=== PATIENT | female | born 1930 | race Caucasian/White ===

== ENCOUNTER 2018-11-18 17:30 | Inpatient (IN) | payer MEDICARE, BC ==
[2018-11-18] MEDS ORDERED: Lactated Ringers 1,000 ML IV SCH (18:00)
[2018-11-18] MEDS ORDERED: cefTRIAXone 1 GM Vial IV SCH (18:00)
--- NOTE | 2018-11-18 18:03 | EDM.PDOC ---
<OfficerReyes - Last Filed: 11/18/18 18:03> ED HPI GENERAL MEDICAL PROBLEM - General Chief Complaint: Genitourinary Problem Stated Complaint: ILLNESS Time Seen by Provider: 11/18/18 17:48 Source of Information: Reports: Patient, Family, RN Notes Reviewed History Limitations: Reports: No Limitations - History of Present Illness INITIAL COMMENTS - FREE TEXT/NARRATIVE: 88-year-old female presents to emergency department today via EMS services for new onset confusion and weakness, she states she was seen in the clinic about a week ago for a cough that she's had now for 2 weeks evaluation at that time included rapid strep screen and rapid influenza screen both were negative. She has not done any treatment. She states over the last couple days she's developed some urinary frequency and dysuria as well as a fever - Related Data Allergies Allergy/AdvReac Type Severity Reaction Status Date / Time adhesive tape Allergy Blisters Verified 11/18/18 17:44 diphenhydramine HCl Allergy Blisters Verified 11/18/18 17:44 [From Benadryl] ibuprofen [From Motrin] Allergy Cannot Verified 11/18/18 17:44 Remember latex Allergy Blisters Verified 11/18/18 17:44 Home Meds: Home Meds Acetaminophen [Tylenol Extra Strength] 1,000 mg PO Q6HR 07/15/15 [History] HCTZ/Triamterene [Maxzide 25-37.5 MG] 0.5 tab PO DAILY 07/15/15 [History] Lisinopril 1 tab PO BID 08/27/15 [History] Cyanocobalamin (Vitamin B-12) [Vitamin B-12] 1,000 mcg PO DAILY 11/18/18 [ History] Past Medical History HEENT History: Reports: Impaired Vision, Other (See Below) Other HEENT History: Past hx of bloody nose. 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 Psychiatric History: Reports: Anxiety Oncologic (Cancer) History: Reports: Other (See Below) Other Oncologic History: melanoma - Infectious Disease History Infectious Disease History: Reports: Chicken Pox, Measles, Mumps, Shingles - Past Surgical History HEENT Surgical History: Reports: Cataract Surgery GI Surgical History: Reports: Cholecystectomy, Colonoscopy Female Surgical History: Reports: Section Dermatological Surgical History: Reports: Skin Biopsy, Skin Graft Social & Family History - Tobacco Use Smoking Status *Q: Never Smoker - Caffeine Use Caffeine Use: Reports: Coffee, Tea - Recreational Drug Use Recreational Drug Use: No ED ROS GENERAL - Review of Systems Review Of Systems: See Below Constitutional: Reports: Fever, Chills, Weakness HEENT: Reports: No Symptoms Respiratory: Reports: Shortness of Breath, Cough, Sputum. Denies: Wheezing Cardiovascular: Reports: Dyspnea on Exertion GI/Abdominal: Reports: No Symptoms : Reports: Dysuria, Frequency (Discharge) Musculoskeletal: Reports: No Symptoms Skin: Reports: No Symptoms Neurological: Reports: No Symptoms ED EXAM, SEPSIS - Physical Exam Exam: See Below Text/Narrative:: General: Elderly female not in any distress orientated 2, alert HEENT: head is atraumatic normocephalic, eyes pupils equal round reactive to light, sclera clear no conjunctivitis appreciated. Ears tympanic membranes clear and liang landmarks and light reflex are present bilaterally canals are clear. Nose no septal deviation, nares are clear, no blood present. Mouth mucosa is moist and pink no erythema or exudate noted in soft palate, tongue is midline uvula is midline, dentition is intact. Neck: Supple no thyromegaly no tracheal deviation. Nodes: Cervical nodes subclavicular nodes nontender no palpable lymphadenopathy noted. Lungs: clear to auscultation bilaterally with symmetrical respirations, no adventitious noise appreciated. CV: Regular rate and rhythm S1 and S2 appreciated no murmurs rubs or gallops noted. Abdomen: Soft, nontender, no palpable masses or organomegaly appreciated, no distention no guarding bowel sounds are present, . Neuro: Cranial nerves II through XII intact Skin: Warm and dry, intact Extremities: No lower extremity edema appreciated, pedal pulse is +2. Course - Vital Signs Last Recorded V/S: Last Vital Signs Temp 98.9 F 11/18/18 20: Pulse 85 11/18/18 20:21 Resp 16 11/18/18 20:21 BP 101/54 L 11/18/18 20:21 Pulse Ox 96 11/18/18 20:21 - Orders/Labs/Meds Orders: Active Orders 24 hr Category Date Time Status Vital Signs [RC] Q1H Care 11/18/18 17:56 Active Chest 1V Frontal [CR] Urgent Exams 11/18/18 18:21 Taken CULTURE BLOOD [BC] Urgent Lab 11/18/18 18:05 Received CULTURE BLOOD [BC] Urgent Lab 11/18/18 18:16 Received Lactated Ringers [Ringers, Lactated] 1,000 ml Med 11/18/18 18:00 Active IV ASDIRECTED Blood Culture x2 Reflex Set [OM.PC] Urgent Oth 11/18/18 17:56 Ordered Medication Orders Lactated Ringer's (Ringers, Lactated) 1,000 mls @ 500 mls/hr IV ASDIRECTED IRENE Last Admin: 11/18/18 18:16 Dose: 500 mls/hr Labs: Laboratory Tests 11/18/18 11/18/18 11/18/18 Range/Units 18:06 18:16 18:16 WBC 3.8 L (4.5-11.0) K/uL RBC 3.67 (3.30-5.50) M/uL Hgb 11.2 L (12.0-15.0) g/dL Hct 35.2 L (36.0-48.0) % MCV 96 (80-98) fL MCH 31 (27-31) pg MCHC 32 (32-36) % Plt Count 186 (150-400) K/uL Neut % (Auto) 81 H (36-66) % Lymph % (Auto) 9 L (24-44) % Garza % (Auto) 10 H (2-6) % Eos % (Auto) 0 L (2-4) % Baso % (Auto) 0 (0-1) % Sodium 137 L (140-148) mmol/L Potassium 3.6 (3.6-5.2) mmol/L Chloride 98 L (100-108) mmol/L Carbon Dioxide 29 (21-32) mmol/L Anion Gap 13.6 (5.0-14.0) mmol/L BUN 21 H (7-18) mg/dL Creatinine 1.1 H (0.6-1.0) mg/dL Est Cr Clr Drug Dosing 27.96 mL/min Estimated GFR (MDRD) 47 L (>60) Glucose 116 H (74-106) mg/dL Lactic Acid (0.4-2.0) mmol/L Calcium 9.5 (8.5-10.1) mg/dL Total Bilirubin 0.3 (0.2-1.0) mg/dL AST 21 (15-37) U/L ALT 20 (12-78) U/L Alkaline Phosphatase 76 (46-116) U/L C-Reactive Protein 4.77 H (0.0-0.3) mg/dL Total Protein 7.3 (6.4-8.2) g/dL Albumin 3.6 (3.4-5.0) g/dL Globulin 3.7 H (2.3-3.5) g/dL Albumin/Globulin Ratio 1.0 L (1.2-2.2) Urine Color Yellow Urine Appearance Cloudy Urine pH 5.0 (4.5-8.0) Ur Specific [place] 1.015 (1.008-1.030) Urine Protein Trace (NEGATIVE) mg/dL Urine Glucose (UA) Normal (NEGATIVE) mg/dL Urine Ketones 50 H (NEGATIVE) mg/dL Urine Occult Blood Moderate (NEGATIVE) Urine Nitrite Negative (NEGATIVE) Urine Bilirubin Moderate (NEGATIVE) Urine Urobilinogen 4 (NORMAL) mg/dL Ur Leukocyte Esterase Negative (NEGATIVE) Urine RBC 0-5 (0-5) Urine WBC 0-5 (0-5) Ur Epithelial Cells Moderate Amorphous Sediment Few Urine Bacteria Few Urine Mucus Few 11/18/18 Range/Units 18:16 WBC (4.5-11.0) K/uL RBC (3.30-5.50) M/uL Hgb (12.0-15.0) g/dL Hct (36.0-48.0) % MCV (80-98) fL MCH (27-31) pg MCHC (32-36) % Plt Count (150-400) K/uL Neut % (Auto) (36-66) % Lymph % (Auto) (24-44) % Garza % (Auto) (2-6) % Eos % (Auto) (2-4) % Baso % (Auto) (0-1) % Sodium (140-148) mmol/L Potassium (3.6-5.2) mmol/L Chloride (100-108) mmol/L Carbon Dioxide (21-32) mmol/L Anion Gap (5.0-14.0) mmol/L BUN (7-18) mg/dL Creatinine (0.6-1.0) mg/dL Est Cr Clr Drug Dosing mL/min Estimated GFR (MDRD) (>60) Glucose (74-106) mg/dL Lactic Acid 1.2 (0.4-2.0) mmol/L Calcium (8.5-10.1) mg/dL Total Bilirubin (0.2-1.0) mg/dL AST (15-37) U/L ALT (12-78) U/L Alkaline Phosphatase (46-116) U/L C-Reactive Protein (0.0-0.3) mg/dL Total Protein (6.4-8.2) g/dL Albumin (3.4-5.0) g/dL Globulin (2.3-3.5) g/dL Albumin/Globulin Ratio (1.2-2.2) Urine Color Urine Appearance Urine pH (4.5-8.0) Ur Specific [place] (1.008-1.030) Urine Protein (NEGATIVE) mg/dL Urine Glucose (UA) (NEGATIVE) mg/dL Urine Ketones (NEGATIVE) mg/dL Urine Occult Blood (NEGATIVE) Urine Nitrite (NEGATIVE) Urine Bilirubin (NEGATIVE) Urine Urobilinogen (NORMAL) mg/dL Ur Leukocyte Esterase (NEGATIVE) Urine RBC (0-5) Urine WBC (0-5) Ur Epithelial Cells Amorphous Sediment Urine Bacteria Urine Mucus Meds: Medications Generic Name Dose Route Start Last Admin Trade Name Freq PRN Reason Stop Dose Admin Lactated Ringer's 1,000 mls @ 500 mls/hr 11/18/18 18:00 11/18/18 18:16 Ringers, Lactated IV 500 mls/hr ASDIRECTED IRENE Administration Discontinued Medications Generic Name Dose Route Start Last Admin Trade Name Freq PRN Reason Stop Dose Admin Azithromycin 500 mg 11/18/18 18:50 11/18/18 18:56 Zithromax PO 11/18/18 18:51 500 mg ONETIME ONE Administration Ceftriaxone Sodium 1 gm/ 50 mls @ 100 mls/hr 11/18/18 18:11 11/18/18 18:16 Sodium Chloride IV 11/18/18 18:40 100 mls/hr ONETIME ONE Administration Oseltamivir Phosphate 75 mg 11/18/18 19:05 11/18/18 19:32 Tamiflu PO 11/18/18 19:06 75 mg ONETIME ONE Administration Departure - Departure Disposition: Home, Self-Care 01 Clinical Impression: Influenza A, Bronchitis - Discharge Information <Martinez Bell - Last Filed: 11/18/18 21:56> Course - Re-Assessments/Exams Free Text/Narrative Re-Assessment/Exam: 11/18/18 18:55 Patient care turned over from Officer pending lab and x-ray. White count was 3800, UA was negative for infection and chest x-ray showed no significant infiltrate. Her influenza A is now positive, it was negative in the clinic last week. She is not hypoxic and is otherwise stable. She does not want hospitalization. She'll be discharged on a 5 day course of Tamiflu and Zithromax to cover atypicals, she has an appointment with her primary provider tomorrow. If she worsens, especially difficulty breathing she should return to the emergency room. 11/18/18 21:55 Patient attempted to leave but she is really too weak to even stand. The family was very concerned about her ability to care for herself. Patient was willing to be admitted, Dr. Cruz was contacted for admission. Departure - Departure Time of Disposition: 20:13 Condition: Fair
[2018-11-18] MEDS ORDERED: cefTRIAXone 1 GM in Sodium Chloride 0.9% 50 ML IV ONE (18:11)
[2018-11-18] MEDS ORDERED: Azithromycin 250 MG Tab PO ONE (18:50)
[2018-11-18] MEDS ORDERED: Oseltamivir 75 MG Cap PO ONE (19:05)
[2018-11-18] MEDS ORDERED: Ondansetron 4 MG Tab.DIS PO PRN (21:51)
[2018-11-18] MEDS ORDERED: Acetaminophen 325 MG Tab PO PRN (21:51)
[2018-11-18] MEDS ORDERED: guaiFENesin/Dextromethorphan 100-10 MG/5 ML Soln 10 ML Cup PO PRN (21:55)
--- NOTE | 2018-11-18 23:34 | HP ---
IDENTIFYING DATA: Brandy Ca is an 88-year-old female from [facility]. CHIEF COMPLAINT: "I feel weak." HISTORY OF PRESENT ILLNESS: An elderly female has an approximately a week long history of an acute respiratory infection, initially thought to represent a simple viral syndrome. She was seen in the clinic and found to have negative influenza testing and was instructed to treat symptomatically. Over the last 48 hours, she has had increasing weakness, questionable fever, malaise, and periods of confusion. She returned to the emergency room this evening with general lethargy and inability to care for self and was found to have positive influenza A nasal smear. She has had fevers and chills as well as a mildly pleuritic cough with yellow-green sputum production. Appetite is diminished. No abdominal pain, nausea, or emesis. No nasal congestion, sore throat, or headaches. Mild chronic arthralgias are reported by patient. She has not received an annual influenza vaccine. PAST MEDICAL HISTORY: Previous surgeries include cholecystectomy and screening colonoscopy as well as delivery in the remote past. She has had bilateral cataract extractions. Chronic health problems include only essential hypertension with pharmacologic therapy and degenerative arthritis of the left hip requiring ambulation with use of a walker. She is not currently driving. Family checks near daily on her status, do provide assistance with transportation, appointments, and grocery shopping. ALLERGIES: REPORTED TO ADHESIVE TAPE, DIPHENHYDRAMINE, IBUPROFEN, AND LASIX. CURRENT MEDICATIONS: Acetaminophen 1000 mg q.a.m. and q.6 hours p.r.n., hydrochlorothiazide with triamterene 25/37.5 mg 1/2 tablet daily, lisinopril 1 tablet b.i.d. dose unknown, and vitamin B12 1000 mcg p.o. daily. HABITS: Nonsmoker. No alcohol use. Caffeine intake of 3-4 cups of coffee daily. 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 Family checks on her frequently. A mobile homes repairer checks daily and provides assistance with housekeeping as needed. FAMILY HISTORY: A great granddaughter has recent upper respiratory infection. No other familial history is of current illnesses. REVIEW OF SYSTEMS: NEUROLOGIC: History of macular degeneration and cataract disease with visual impairment. No longer able to read without use of magnification. She does not drive. No history of stroke, seizures, dementia, or focal weakness. CARDIAC: Hypertension. No history of diabetes, ischemic heart disease, VA, chest pain, palpitations, syncope, or unusual shortness of breath. No dependent edema or peripheral vascular disease. RESPIRATORY: Denies asthma, emphysema, tuberculosis, chronic cough or sputum production. GI: No history of chronic dyspepsia, hepatitis, jaundice, melena or hematochezia. : No chronic renal disease. Mild urinary urgency noted today. With her general weakness and inability to ambulate independently, she was incontinent today. MUSCULOSKELETAL: Chronic left hip arthritic pain. Some stiffness at the knees reported by patient. She does have a history of falls and has medical alert bracelet worn routinely. PHYSICAL EXAMINATION: GENERAL: Appearance is that of a weak and elderly female with a harsh mildly rhonchorous cough. VITAL SIGNS: Initial vitals; temperature 98.9 degrees Fahrenheit, pulse rate 85, respiratory rate 16 with O2 sats of 96% on room air, blood pressure 101/54. HEENT: Status post cataract extraction. Sclerae anicteric. No facial asymmetry. Speech is clear. Hearing slightly diminished. Oral mucosa is moist. NECK: Brisk carotid pulses. No stridor or adenopathy. LUNGS: Resonant, nontachypneic, symmetrical aeration. Mild coarse expiratory rhonchi. No rales or wheezes heard. HEART: Regular without murmurs or gallops. ABDOMEN: Soft, nontender, and nondistended. No organomegaly. Active sounds. Good femoral pulses. No abdominal bruits or CVA pain. AND RECTAL: Omitted. EXTREMITIES: No pitting edema. SKIN: Warm and pink, intact. Good distal arterial pulses. Brisk capillary refill. LABORATORY DATA: On admission, WBC 3.8 with 81% segs, 9% lymphocytes, 10% monos, hemoglobin 11.2, hematocrit 35.2, platelet count 186,000. Sodium 137, potassium 3.6, BUN 21, creatinine 1.1, GFR 47, glucose 116. Alkaline phosphatase 76 with AST of 21. C-reactive protein moderately elevated at 4.77. Urinalysis; specific gravity 1.015, positive ketonuria, moderate occult blood and bilirubin, negative leukocyte esterase, 0-5 wbc's, few bacteria. Lactic acid within normal range at 1.2. Chest x-ray; no acute areas of consolidation or infiltrates to suggest acute bacterial pulmonary sepsis. Influenza nasal smear is positive for influenza A. IMPRESSIONS: 1. General weakness, fever, and lethargy secondary to influenza A. 2. History of hypertension. 3. Degenerative arthritis of left hip with moderate mobility limitations. 4. Currently at an acute vulnerable status with her infectious illness and inability to care for self. PLAN: The patient will be admitted to observation bed. We will provide antipyretics, antivirals in the form of scheduled Tamiflu, Tylenol for fever and discomfort as well as ongoing use of antihypertensives. Allow ambulation with assistance as tolerated and a regular diet. If general weakness does not allow for return to her private residence within 24 to 48 hours, we will need to consider transition to retirement for ongoing supportive care. Family is in agreement. Paul Cruz MD /[id number]
--- NOTE | 2018-11-19 05:26 | PN ---
DATE OF SERVICE: 11/19/2018 SUBJECTIVE: An 88-year-old female was admitted yesterday evening with generalized weakness, fever, congestion, cough, and positive influenza A studies. Through the night, she has rested intermittently. She has an occasional harsh mildly productive cough. Denies pain. No nausea or emesis. She is taking small amounts of liquid. Denies shortness of breath. OBJECTIVE: VITAL SIGNS: Temperature this morning 38.1 degrees centigrade, pulse rate 74, blood pressure 89/44, respiratory rate 19 with O2 saturations 94% on room air. HEENT: Throat is moist and pink. NECK: Brisk carotid pulses. No stridor or adenopathy. LUNGS: Occasional mild rhonchorous cough, non-tachypneic. No wheezes or rales heard. HEART: Regular without murmurs or gallops. EXTREMITIES: Warm and pink with good turgor. IMPRESSION AND PLAN: Influenza A with accompanying weakness on presentation. Has not yet ambulated out of bed. We will encourage movement about the room with supervision of nursing staff today. Provide dietary intake as tolerated. Encouraged increased fluid intake and maintain on antiviral therapies with Tamiflu. If she shows sufficient improvement, to allow for performance of ADLs in a reliable manner without weakness or confusion. We will consider discharge to home today. Family and caregivers do check daily on her status and likely will be able to be discharged to home without additional home care services. We will follow up at midday to review her current functional status. Paul Cruz MD /[id number]
[2018-11-19] MEDS ORDERED: Oseltamivir 30 MG Cap PO SCH (09:00)
[2018-11-19] MEDS ORDERED: Oseltamivir 75 MG Cap PO SCH ×2 (09:00)
[2018-11-19 14:24] VITALS: BP 107/54
[2018-11-19] MEDS ORDERED: cefTRIAXone 1 GM, Lidocaine 1% 2.1 ML IM SCH ×2 (18:00)
[2018-11-19] MEDS ORDERED: cefTRIAXone 1 GM Vial IM SCH (18:00)
--- NOTE | 2018-11-20 04:47 | DISCH ---
REASON FOR ADMISSION: An 88-year-old female who lived alone, was admitted with complaints of fever, general weakness, and reported confusion identified by family. She had a 2-day history of acute respiratory symptoms with congestion and cough. Family reports an approximate week long history of lesser congestion and cough with earlier influenza studies obtained at the clinic noted to be normal or negative. She has noted history of essential hypertension. Additionally, she has degenerative arthritis of the left hip. She uses a walker as an ambulatory aid. Family and acquaintances check routinely. She is provided transportation by family. She no longer drives. PHYSICAL EXAMINATION ON ADMISSION: VITAL SIGNS: Temperature 98.9 degrees, pulse rate 85, respiratory rate 16 with O2 sats 96% on room air, blood pressure 101/54. HEENT: Status post cataract extraction. No facial asymmetry. Speech is clear. Oral mucosa was moist. NECK: Brisk carotid pulses. No stridor or adenopathy. LUNGS: Symmetrical aeration. Non-tachypneic. Mild coarse expiratory rhonchi. No wheezes or rales heard. HEART: Regular without murmurs. ABDOMEN: Benign. EXTREMITIES: No pitting edema. SKIN: Warm, pink, and intact with brisk arterial pulses. LABORATORY DATA: On admission: WBC 3.8 with 81% segs, 9% lymphocytes, 10 monos; hemoglobin 11.2; platelet count 186,000. Sodium 137, potassium 3.6, BUN 21, creatinine 1.1, GFR 47, glucose 116, alkaline phosphatase 76, AST 21. CRP mildly elevated at 4.77. Urinalysis: Specific gravity of 1.015, positive ketonuria, moderate occult blood and bilirubin, negative leukocyte esterase, 0 to 5 wbc's, few bacteria. Lactic acid 1.2. Chest x-ray: No acute consolidation or infiltrates. Influenza nasal smear was positive for influenza A. HOSPITAL COURSE: The patient was admitted to observation status with noted generalized weakness and reported confusion of 1 to 2 days duration. She had congestion, cough, and scant sputum production. She rested comfortably through the night and had no acute respiratory distress. O2 sats were maintained within normal range on room air. The following morning cough was showing interval improvement with antiviral therapy. Appetite was improved. She was ambulated with standby assistance of staff. She was able to rise from toilet and bed unassisted, ambulate short distances limited primarily by left hip pain of recognized chronic arthritis as well as accompanying generalized weakness. Physical therapy services were obtained. She was found to be able to reliably perform ambulatory activities with reasonable symmetrical strength. Plans for discharge to home were made. CONDITION: Improved. DISCHARGE INSTRUCTIONS: 1. Home with family on 11/19/2018. 2. Diet: As tolerated. 3. No driving. May be up with use of walker as tolerated. 4. We will hold antihypertensive therapies. Continue with antiviral therapies in the form of Tamiflu at 35 mg p.o. daily x3 days to complete a 5-day course of therapy. 5. May resume p.r.n. use of Tylenol for arthritic hip. ADMITTING DIAGNOSES: 1. Influenza A with fever, weakness, and lethargy. 2. History of hypertension. 3. Degenerative arthritis of left hip. DISCHARGE DIAGNOSES: 1. Influenza A, weakness, fever, lethargy, and transient confusion, now showing interval improvement. 2. Hypertension. 3. Degenerative arthritis of left hip with moderate mobility limitations, requiring use of walker.
--- NOTE | 2018-11-20 07:28 | CRLCR ---
Final Report: INDICATION: cough, fever TECHNIQUE: Chest 1 view. COMPARISON: None. FINDINGS: Cardiovascular and mediastinum: Heart size and vasculature are normal in caliber and appearance. Mediastinum is within normal limits. Lungs and pleural space: Lungs are clear. No sign of infiltrate or mass. No sign of pleural effusion. No pneumothorax. Bones and soft tissues: No significant findings. IMPRESSION: Unremarkable chest. Dictated by: Kain Cyr MD @ 11/18/2018 18:46:48 Signed by: Kain Cyr MD @11/18/2018 6:46:48 PM (Electronic Signature) MTDD
== END 2018-11-19 16:00 | disposition home or self-care (01) | DRG 195 ==
LOC: JP.ED 17:30 → JP.MS 19:37
PROVIDERS: ADMIT Family Medicine; ATTEND Family Medicine
DX: J10.1 Influenza due to other identified influenza virus with other respiratory manifestations (principal); J40 Bronchitis, not specified as acute or chronic; R53.1 Weakness; I10 Essential (primary) hypertension; M16.12 Unilateral primary osteoarthritis, left hip; R41.0 Disorientation, unspecified; R53.83 Other fatigue; Z85.820 Personal history of malignant melanoma of skin; H54.7 Unspecified visual loss; Z90.49 Acquired absence of other specified parts of digestive tract; Z91.040 Latex allergy status; Z88.8 Allergy status to other drugs, medicaments and biological substances; Z91.048 Other nonmedicinal substance allergy status
CPT/HCPCS: 36415; 71045; 80053; 81001; 83605; 85025; 86140; 87040 ×2; 87804 ×2; 96365; 99285; A9270 ×2; J0696; J7050; J7120; 97110-GP; 97162-GP; 97530-GP; 97535-GP

== ENCOUNTER 2019-03-11 21:06 | Inpatient (IN) | payer MEDICARE, BC ==
--- NOTE | 2019-03-11 22:01 | EDM.PDOC ---
ED HPI GENERAL MEDICAL PROBLEM - General Chief Complaint: Fever Stated Complaint: FEVER,WEAKNESS Time Seen by Provider: 03/11/19 21:40 Source of Information: Reports: Patient History Limitations: Reports: No Limitations - History of Present Illness INITIAL COMMENTS - FREE TEXT/NARRATIVE: 80-year-old female who still lives independently has been feeling weak and ill for the past couple of days, has developed some lower abdominal pain and intermittent fever. Tonight her family went to evaluate her and she was too weak to walk, she had a temperature of "102.8" and they felt she wasn't eating. Other than some vague left lower quadrant abdominal pain, she has no specific complaints such as cold symptoms, cough, shortness of breath, headache, joint pains or rigors. She denies any urinary symptoms. No diarrhea. Onset: Gradual Duration: Day(s): (3 days) Location: Reports: Abdomen (Left lower quadrant) Associated Symptoms: Reports: Fever/Chills, Malaise, Weakness. Denies: Cough, Nausea/Vomiting, Shortness of Breath Hip Pain Score (Numeric/FACES): 3 - Related Data Allergies Allergy/AdvReac Type Severity Reaction Status Date / Time adhesive tape Allergy Blisters Verified 03/11/19 21:21 diphenhydramine HCl Allergy Blisters Verified 03/11/19 21:21 [From Benadryl] ibuprofen [From Motrin] Allergy Cannot Verified 03/11/19 21:21 Remember latex Allergy Blisters Verified 03/11/19 21:21 Home Meds: Home Meds Acetaminophen [Tylenol] 650 mg PO Q4H PRN tablet 11/19/18 [Rx] Fluorouracil 1 applic TOP ASDIRECTED 03/11/19 [History] Triamterene/Hydrochlorothiazid [Triamterene-HCTZ 37.5-25 MG] 0.5 each PO DAILY 03/11/19 [History] Past Medical History HEENT History: Reports: Impaired Vision, Other (See Below) Other HEENT History: Past hx of bloody nose. 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 Psychiatric History: Reports: Anxiety Oncologic (Cancer) History: Reports: Other (See Below) Other Oncologic History: melanoma - Infectious Disease History Infectious Disease History: Reports: Chicken Pox - Past Surgical History HEENT Surgical History: Reports: Cataract Surgery GI Surgical History: Reports: Cholecystectomy, Colonoscopy Female Surgical History: Reports: Section Dermatological Surgical History: Reports: Skin Biopsy, Skin Graft Social & Family History - Family History Family Medical History: Unobtainable - Tobacco Use Smoking Status *Q: Never Smoker Second Hand Smoke Exposure: No - Caffeine Use Caffeine Use: Reports: Coffee - Recreational Drug Use Recreational Drug Use: No ED ROS GENERAL - Review of Systems Review Of Systems: See Below Constitutional: Reports: Fever, Chills, Malaise, Weakness, Decreased Appetite HEENT: Reports: No Symptoms Respiratory: Denies: Shortness of Breath, Cough Cardiovascular: Denies: Chest Pain GI/Abdominal: Reports: Abdominal Pain, Nausea (When eating). Denies: Constipation, Diarrhea, Vomiting : Reports: No Symptoms Skin: Reports: Other (Significant systemic rash that she is applying any anti- neoplastic cream) Neurological: Reports: Weakness. Denies: Confusion, Dizziness, Headache ED EXAM, SEPSIS - Physical Exam Exam: See Below Exam Limited By: No Limitations General Appearance: Alert, No Apparent Distress, Other (Appears weak but not in distress) Eye Exam: Bilateral Eye: EOMI (No jaundice, good hydration) Head: Atraumatic Respiratory/Chest: No Respiratory Distress, Lungs Clear Cardiovascular: Regular Rate, Rhythm. No: Tachycardia GI/Abdominal Exam: Soft, Tender (Reacts with tenderness with slight guarding in the left lower quadrant, no significant rebound tenderness) Extremities: Normal Inspection. No: Pedal Edema Neurological: Alert, Oriented Psychiatric: Depressed Mood, Flat Affect Skin: Warm, Dry, Other (Diffuse erythematous macular rash) Course - Vital Signs Last Recorded V/S: Last Vital Signs Temp 98.8 F 03/14/19 04:00 Pulse 109 H 03/14/19 16:00 Resp 20 03/14/19 16:00 BP 99/59 L 03/14/19 16:00 Pulse Ox 96 03/14/19 16:00 - Orders/Labs/Meds Orders: Medication Orders Acetaminophen (Tylenol) 650 mg PO Q4H PRN PRN Reason: Pain Last Admin: 03/13/19 09:37 Dose: 650 mg Admin: 03/12/19 17:04 Dose: 650 mg Admin: 03/12/19 09:01 Dose: 325 mg Admin: 03/12/19 08:48 Dose: 325 mg Albuterol (Proventil Neb Soln) 2.5 mg NEB Q4H PRN PRN Reason: Shortness Of Breath/wheezing Amiodarone HCl (Cordarone) 200 mg PO BID IRENE Bisacodyl (Dulcolax) 5 mg PO DAILY PRN PRN Reason: Constipation Cefdinir (Omnicef) 300 mg PO BID IRENE Docusate Sodium (Colace) 100 mg PO BID PRN PRN Reason: Constipation Ondansetron HCl (Zofran Odt) 4 mg PO Q6H PRN PRN Reason: Nausea able to take PO Ondansetron HCl (Zofran) 4 mg IV Q4H PRN PRN Reason: Nausea/Vomiting Pantoprazole Sodium (Protonix) 40 mg PO ACBREAKFAST IRENE Last Admin: 03/14/19 07:44 Dose: 40 mg Admin: 03/13/19 08:03 Dose: 40 mg Admin: 03/12/19 08:49 Dose: 40 mg Labs: Laboratory Tests 03/11/19 03/11/19 03/11/19 Range/Units 21:44 21:56 21:56 WBC 3.2 L (4.5-11.0) K/uL RBC 3.34 (3.30-5.50) M/uL Hgb 10.4 L (12.0-15.0) g/dL Hct 31.2 L (36.0-48.0) % MCV 93 (80-98) fL MCH 31 (27-31) pg MCHC 33 (32-36) % Plt Count 79 L (150-400) K/uL Neut % (Auto) 39 (36-66) % Lymph % (Auto) 44 (24-44) % [place] % (Auto) 13 H (2-6) % Eos % (Auto) 0 L (2-4) % Baso % (Auto) 4 H (0-1) % Sodium 134 L (140-148) mmol/L Potassium 3.7 (3.6-5.2) mmol/L Chloride 101 (100-108) mmol/L Carbon Dioxide 27 (21-32) mmol/L Anion Gap 9.7 (5.0-14.0) mmol/L BUN 21 H (7-18) mg/dL Creatinine 0.9 (0.6-1.0) mg/dL Est Cr Clr Drug Dosing 37.31 mL/min Estimated GFR (MDRD) 59 L (>60) Glucose 113 H (74-106) mg/dL Lactic Acid (0.4-2.0) mmol/L Calcium 8.9 (8.5-10.1) mg/dL Total Bilirubin 0.6 D (0.2-1.0) mg/dL AST 53 H D (15-37) U/L ALT 44 D (12-78) U/L Alkaline Phosphatase 71 (46-116) U/L Total Protein 5.9 L (6.4-8.2) g/dL Albumin 3.1 L (3.4-5.0) g/dL Globulin 2.8 (2.3-3.5) g/dL Albumin/Globulin Ratio 1.1 L (1.2-2.2) Procalcitonin 0.92 ng/mL Urine Color [place] Urine Appearance Clear Urine pH 6.0 (4.5-8.0) Ur Specific [place] 1.015 (1.008-1.030) Urine Protein 30 H (NEGATIVE) mg/dL Urine Glucose (UA) Normal (NEGATIVE) mg/dL Urine Ketones Negative (NEGATIVE) mg/dL Urine Occult Blood Moderate (NEGATIVE) Urine Nitrite Negative (NEGATIVE) Urine Bilirubin Small (NEGATIVE) Urine Urobilinogen 8 (NORMAL) mg/dL Ur Leukocyte Esterase Small (NEGATIVE) Urine RBC 5-10 H (0-5) Urine WBC 5-10 H (0-5) Ur Epithelial Cells Moderate Amorphous Sediment Few Urine Bacteria Few Urine Mucus Moderate Urine Other See note 03/11/19 Range/Units 21:56 WBC (4.5-11.0) K/uL RBC (3.30-5.50) M/uL Hgb (12.0-15.0) g/dL Hct (36.0-48.0) % MCV (80-98) fL MCH (27-31) pg MCHC (32-36) % Plt Count (150-400) K/uL Neut % (Auto) (36-66) % Lymph % (Auto) (24-44) % [place] % (Auto) (2-6) % Eos % (Auto) (2-4) % Baso % (Auto) (0-1) % Sodium (140-148) mmol/L Potassium (3.6-5.2) mmol/L Chloride (100-108) mmol/L Carbon Dioxide (21-32) mmol/L Anion Gap (5.0-14.0) mmol/L BUN (7-18) mg/dL Creatinine (0.6-1.0) mg/dL Est Cr Clr Drug Dosing mL/min Estimated GFR (MDRD) (>60) Glucose (74-106) mg/dL Lactic Acid 1.0 (0.4-2.0) mmol/L Calcium (8.5-10.1) mg/dL Total Bilirubin (0.2-1.0) mg/dL AST (15-37) U/L ALT (12-78) U/L Alkaline Phosphatase (46-116) U/L Total Protein (6.4-8.2) g/dL Albumin (3.4-5.0) g/dL Globulin (2.3-3.5) g/dL Albumin/Globulin Ratio (1.2-2.2) Procalcitonin ng/mL Urine Color Urine Appearance Urine pH (4.5-8.0) Ur Specific [place] (1.008-1.030) Urine Protein (NEGATIVE) mg/dL Urine Glucose (UA) (NEGATIVE) mg/dL Urine Ketones (NEGATIVE) mg/dL Urine Occult Blood (NEGATIVE) Urine Nitrite (NEGATIVE) Urine Bilirubin (NEGATIVE) Urine Urobilinogen (NORMAL) mg/dL Ur Leukocyte Esterase (NEGATIVE) Urine RBC (0-5) Urine WBC (0-5) Ur Epithelial Cells Amorphous Sediment Urine Bacteria Urine Mucus Urine Other Meds: Medications Generic Name Dose Route Start Last Admin [facility] Reason Stop Dose Admin Acetaminophen 650 mg 03/12/19 02:16 03/13/19 09:37 Tylenol PO 650 mg Q4H PRN Administration Pain Albuterol 2.5 mg 03/12/19 02:16 Proventil Neb Soln NEB Q4H PRN Shortness Of Breath/wheezing Amiodarone HCl 200 mg 03/14/19 21:00 Cordarone PO BID IRENE Bisacodyl 5 mg 03/12/19 02:16 Dulcolax PO DAILY PRN Constipation Cefdinir 300 mg 03/14/19 21:00 Omnicef PO BID IRENE Docusate Sodium 100 mg 03/12/19 02:16 Colace PO BID PRN Constipation Ondansetron HCl 4 mg 03/12/19 02:16 Zofran Odt PO Q6H PRN Nausea able to take PO Ondansetron HCl 4 mg 03/12/19 02:16 Zofran IV Q4H PRN Nausea/Vomiting Pantoprazole Sodium 40 mg 03/12/19 07:30 03/14/19 07:44 Protonix PO 40 mg ACBREAKFAST IRENE Administration Discontinued Medications Generic Name Dose Route Start Last Admin Trade Name Freq PRN Reason Stop Dose Admin Amiodarone HCl 200 mg 03/13/19 10:45 03/14/19 08:20 Cordarone PO 200 mg DAILY IRENE Administration Sodium Chloride 1,000 mls @ 500 mls/hr 03/11/19 22:15 03/11/19 22:28 Normal Saline IV 500 mls/hr ASDIRECTED IRENE Administration Sodium Chloride 70 mls @ 3 mls/sec 03/11/19 23:19 03/11/19 23:37 Normal Saline IV 03/11/19 23:20 3 mls/sec ASDIRECTED STA Administration Ceftriaxone Sodium 1 gm/ 50 mls @ 100 mls/hr 03/12/19 02:00 03/14/19 02:43 Sodium Chloride IV 100 mls/hr Q24H IRENE Administration Sodium Chloride 1,000 mls @ 100 mls/hr 03/12/19 02:16 03/12/19 10:20 Normal Saline IV 100 mls/hr ASDIRECTED IRENE Administration Amiodarone HCl 450 mg/ 250 mls @ 33.33 mls/hr 03/12/19 11:00 03/12/19 11:25 Dextrose/Water IV 1 mg/min ASDIRECTED IRENE 33.33 mls/hr Administration Protocol 1 MG/MIN Amiodarone HCl/Dextrose 150 mg 100 mls @ 400 mls/hr 03/12/19 11:00 03/12/19 11:07 / Premix IV 03/12/19 11:14 400 mls/hr ONETIME ONE Administration Sodium Chloride 1,000 mls @ 25 mls/hr 03/12/19 12:45 Normal Saline IV ASDIRECTED IRENE Magnesium Sulfate 2 gm/ Premix 50 mls @ 12.5 mls/hr 03/12/19 13:00 03/12/19 12:59 IV 03/12/19 16:59 12.5 mls/hr ONETIME ONE Administration Amiodarone HCl/Dextrose 150 mg 100 mls @ 400 mls/hr 03/14/19 10:15 03/14/19 10:10 / Premix IV 03/14/19 10:29 400 mls/hr NOW ONE Administration Iopamidol 100 ml 03/11/19 23:19 03/11/19 23:37 Isovue-300 (61%) IV 03/11/19 23:20 100 ml . DIRECTED STA Administration Metoprolol Tartrate 25 mg 03/12/19 01:40 03/12/19 02:43 Lopressor PO 03/12/19 01:41 25 mg ONETIME ONE Administration Triamterene/HCTZ 0.5 each 03/12/19 09:00 03/12/19 08:49 Maxzide 25-37.5 Mg PO 0.5 each DAILY IRENE Administration - Re-Assessments/Exams Free Text/Narrative Re-Assessment/Exam: 03/11/19 22:01 A quick catheter in and out UA was obtained along with a CBC, CMP, blood cultures and pro-calcitonin. 03/12/19 00:23 UA did not show any significant inflammatory findings. White count was 3200 but she has chronic low white cell levels. CMP revealed mild dehydration, pro- calcitonin and lactic acid were both negative and she did not reestablish a fever while in the emergency room. She did not however regain her strength and was still barely unable to bear weight so we'll need to be admitted for the next day or 2 for hydration and strengthening. Departure - Departure Time of Disposition: 02:14 Disposition: Admitted As Inpatient 66 Clinical Impression: Weakness, Dehydration - Discharge Information
[2019-03-11] MEDS ORDERED: Sodium Chloride 0.9% 1,000 ML IV SCH (22:15)
[2019-03-11] MEDS ORDERED: Iopamidol 612 MG/ML 100 ML Bottle IV STA (23:19)
--- NOTE | 2019-03-12 00:15 | CRLCT ---
INDICATION: Lower abdominal pain. CT ABDOMEN AND PELVIS WITH CONTRAST TECHNIQUE: Multidetector CT imaging was performed through the abdomen and pelvis following intravenous contrast administration using 100 mL Isovue 300. Coronal and sagittal reconstructions were generated. COMPARISON: None. FINDINGS: Lower chest: Mild bibasilar lung atelectasis or scarring. Liver: No focal liver lesion identified. Gallbladder and bile ducts: Status post cholecystectomy. Moderate intrahepatic and extrahepatic biliary dilation; this may merely reflect post cholecystectomy reservoir effect but correlation with LFTs is suggested to exclude biliary obstruction. Pancreas: Unremarkable. Spleen: Normal. Adrenals: No nodules or masses. Kidneys, ureters, and urinary bladder: 2 centimeter cyst at the lower pole of the left kidney. Moderate distention of the urinary bladder and mild dilation of the ureters and intrarenal collecting systems bilaterally. Gastrointestinal tract: Nonspecific mild increase in small bowel gas and fluid, most likely representing mild ileus. No definite bowel obstruction or wall thickening. Appendix not identified. No findings suggestive of appendicitis in the right lower quadrant. Multiple sigmoid colon diverticula, without evidence of diverticulitis. Vascular structures: Normal caliber abdominal aorta with mild aortoiliac atherosclerotic calcifications. Peritoneum: Mild free fluid identified in the lower right pelvis. No loculated collection suggestive of abscess. No free air is seen. Lymph nodes: No pathologically enlarged nodes identified. Reproductive organs: No pelvic masses. Bones: Moderate multilevel spondylosis. 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 IMPRESSION: 1. Nonspecific probable mild ileus and small amount of free pelvic fluid, etiology unclear. 2. Status post cholecystectomy. Moderate dilation of the biliary tree is noted and may reflect post cholecystectomy reservoir effect, but correlation with LFTs is suggested to exclude biliary obstruction. 3. Moderate distention of the urinary bladder and mild bilateral hydroureteronephrosis. 4. Nonacute additional findings as detailed above. LAURA FORBES MD [facility] Dictated by Finesse Forbes MD @ 03/12/2019 12:14:06 AM Dictated by: Finesse Forbes MD @ 03/12/2019 00:14:17 (Electronically Signed)
--- NOTE | 2019-03-12 01:21 | PCM.HP ---
H&P History of Present Illness - General Date of Service: 03/11/19 Admit Problem/Dx: Admission Diagnosis/Problem Admission Diagnosis/Problem Weakness Source of Information: Patient, Family (Son and [id number]) History Limitations: Reports: No Limitations - History of Present Illness Initial Comments - Free Text/Narative: 80-year-old female who still lives independently has been feeling weak and ill for the past couple of days, has developed some lower abdominal pain and intermittent fever. Tonight her family went to evaluate her and she was too weak to walk, she had a temperature of "102.8" and they felt she wasn't eating. Other than some vague left lower quadrant abdominal pain, she has no specific complaints such as cold symptoms, cough, shortness of breath, headache, joint pains or rigors. She denies any urinary symptoms. No diarrhea. Onset: Gradual Duration: Day(s): (3 days) Location: Reports: Abdomen (Left lower quadrant) Associated Symptoms: Reports: Fever/Chills, Malaise, Weakness. Denies: Cough, Nausea/Vomiting, Shortness of Breath Onset of Symptoms: Reports: Sudden, Gradual (3 to 4 days of gradual illness.) Location: Reports: Generalized Improves with: Reports: None Worsens with: Reports: None Associated Symptoms: Reports: Nausea/Vomiting (nausea without vomiting) - Related Data Allergies/Adverse Reactions: Allergies Allergy/AdvReac Type Severity Reaction Status Date / Time adhesive tape Allergy Blisters Verified 03/11/19 21:21 diphenhydramine HCl Allergy Blisters Verified 03/11/19 21:21 [From Benadryl] ibuprofen [From Motrin] Allergy Cannot Verified 03/11/19 21:21 Remember latex Allergy Blisters Verified 03/11/19 21:21 Home Medications: Home Meds Acetaminophen [Tylenol] 650 mg PO Q4H PRN tablet 11/19/18 [Rx] Fluorouracil 1 applic TOP ASDIRECTED 03/11/19 [History] Triamterene/Hydrochlorothiazid [Triamterene-HCTZ 37.5-25 MG] 0.5 each PO DAILY 03/11/19 [History] Past Medical History HEENT History: Reports: Impaired Vision, Other (See Below) Other HEENT History: Past hx of bloody nose. Cardiovascular History: Reports: Hypertension [employer] History: Reports: Other OB/BYN History: Dermoid Psychiatric History: Reports: Anxiety Oncologic (Cancer) History: Reports: Other (See Below) Other Oncologic History: melanoma - Infectious Disease History Infectious Disease History: Reports: Chicken Pox - Past Surgical History HEENT Surgical History: Reports: Cataract Surgery GI Surgical History: Reports: Cholecystectomy, Colonoscopy Female Surgical History: Reports: Section Dermatological Surgical History: Reports: Skin Biopsy, Skin Graft Social & Family History - Family History Family Medical History: Unobtainable - Tobacco Use Smoking Status *Q: Never Smoker Second Hand Smoke Exposure: No - Caffeine Use Caffeine Use: Reports: Coffee - Recreational Drug Use Recreational Drug Use: No - Living Situation & Occupation Living situation: Reports: ( 22 years ago, lives alone in [place]. worked until age 85 years, when told she couldn't drive anymore. She reports she is the last one alive of her 10 brothers and sister. She had 2 Sons, one of cancer, one Grandson . Lives alone in her own home.) H&P Review of Systems - Review of Systems: Review Of Systems: See Below General: Reports: Fever (102.8 at home) HEENT: Reports: Glasses, Other (natural teeth) Pulmonary: Reports: No Symptoms Cardiovascular: Reports: No Symptoms Gastrointestinal: Reports: No Symptoms Genitourinary: Reports: No Symptoms Musculoskeletal: Reports: Joint Pain (chronic left hip pain from arthritis) Skin: Reports: Other (history of skin cancer to face and left side of jaw and ear, left shoulder. currently being treated by Dermatology.) Psychiatric: Reports: No Symptoms Neurological: Reports: No Symptoms Hematologic/Lymphatic: Reports: No Symptoms Immunologic: Reports: No Symptoms Exam - Exam Exam: See Below - Vital Signs Vital Signs: Last Vital Signs Temp 37.1 C 03/11/19 22:45 Pulse 102 H 03/11/19 22:45 Resp 12 03/11/19 21:25 BP 107/58 L 03/11/19 22:45 Pulse Ox 96 03/11/19 22:45 Weight: 67.585 kg - Exam Quality Assessment: DVT Prophylaxis General: Alert, Oriented, Cooperative HEENT: PERRLA, Conjunctiva Clear, EACs Clear, EOMI, Hearing Intact, Mucosa Moist & [place], Nares Patent, Normal Nasal Septum, Posterior Pharynx Clear, Pupils Equal, Pupils Reactive, TMs Clear, Other (natural teeth noted. ) Neck: Supple, Trachea Midline Lungs: Clear to Auscultation, Normal Respiratory Effort Cardiovascular: Regular Rate, Normal S1, Normal S2, Irregular Rhythm GI/Abdominal Exam: Normal Bowel Sounds, Soft, Non-Tender, No Distention, No Abnormal Bruit, No Mass, Pelvis Stable (Female) Exam: Deferred Rectal (Female) Exam: Deferred Back Exam: Normal Inspection Extremities: Normal Inspection, Normal Range of Motion, Pedal Edema (bilateral.) Skin: Warm, Dry, Intact, Rash (yeast rash noted to left abdominal groin fold) Neurological: Reflexes Equal Bilateral, Strength Equal Bilateral Neuro Extensive - Mental Status: Alert, Oriented x3, Normal Mood/Affect, Normal Cognition, Memory Intact Neuro Extensive - Motor, Sensory, Reflexes: Other (weakness) Psychiatric: Alert, Normal Affect, Normal Mood - Patient Data Lab Results Last 24 hrs: Laboratory Results - last 24 hr 03/11/19 03/11/19 03/11/19 Range/Units 21:44 21:56 21:56 WBC 3.2 L (4.5-11.0) K/uL RBC 3.34 (3.30-5.50) M/uL Hgb 10.4 L (12.0-15.0) g/dL Hct 31.2 L (36.0-48.0) % MCV 93 (80-98) fL MCH 31 (27-31) pg MCHC 33 (32-36) % Plt Count 79 L (150-400) K/uL Neut % (Auto) 39 (36-66) % Lymph % (Auto) 44 (24-44) % [place] % (Auto) 13 H (2-6) % Eos % (Auto) 0 L (2-4) % Baso % (Auto) 4 H (0-1) % Sodium 134 L (140-148) mmol/L Potassium 3.7 (3.6-5.2) mmol/L Chloride 101 (100-108) mmol/L Carbon Dioxide 27 (21-32) mmol/L Anion Gap 9.7 (5.0-14.0) mmol/L BUN 21 H (7-18) mg/dL Creatinine 0.9 (0.6-1.0) mg/dL Est Cr Clr Drug Dosing 37.31 mL/min Estimated GFR (MDRD) 59 L (>60) Glucose 113 H (74-106) mg/dL Lactic Acid (0.4-2.0) mmol/L Calcium 8.9 (8.5-10.1) mg/dL Total Bilirubin 0.6 D (0.2-1.0) mg/dL AST 53 H D (15-37) U/L ALT 44 D (12-78) U/L Alkaline Phosphatase 71 (46-116) U/L Total Protein 5.9 L (6.4-8.2) g/dL Albumin 3.1 L (3.4-5.0) g/dL Globulin 2.8 (2.3-3.5) g/dL Albumin/Globulin Ratio 1.1 L (1.2-2.2) Procalcitonin 0.92 ng/mL Urine Color [place] Urine Appearance Clear Urine pH 6.0 (4.5-8.0) Ur Specific [place] 1.015 (1.008-1.030) Urine Protein 30 H (NEGATIVE) mg/dL Urine Glucose (UA) Normal (NEGATIVE) mg/dL Urine Ketones Negative (NEGATIVE) mg/dL Urine Occult Blood Moderate (NEGATIVE) Urine Nitrite Negative (NEGATIVE) Urine Bilirubin Small (NEGATIVE) Urine Urobilinogen 8 (NORMAL) mg/dL Ur Leukocyte Esterase Small (NEGATIVE) Urine RBC 5-10 H (0-5) Urine WBC 5-10 H (0-5) Ur Epithelial Cells Moderate Amorphous Sediment Few Urine Bacteria Few Urine Mucus Moderate Urine Other See note 03/11/19 Range/Units 21:56 WBC (4.5-11.0) K/uL RBC (3.30-5.50) M/uL Hgb (12.0-15.0) g/dL Hct (36.0-48.0) % MCV (80-98) fL MCH (27-31) pg MCHC (32-36) % Plt Count (150-400) K/uL Neut % (Auto) (36-66) % Lymph % (Auto) (24-44) % [place] % (Auto) (2-6) % Eos % (Auto) (2-4) % Baso % (Auto) (0-1) % Sodium (140-148) mmol/L Potassium (3.6-5.2) mmol/L Chloride (100-108) mmol/L Carbon Dioxide (21-32) mmol/L Anion Gap (5.0-14.0) mmol/L BUN (7-18) mg/dL Creatinine (0.6-1.0) mg/dL Est Cr Clr Drug Dosing mL/min Estimated GFR (MDRD) (>60) Glucose (74-106) mg/dL Lactic Acid 1.0 (0.4-2.0) mmol/L Calcium (8.5-10.1) mg/dL Total Bilirubin (0.2-1.0) mg/dL AST (15-37) U/L ALT (12-78) U/L Alkaline Phosphatase (46-116) U/L Total Protein (6.4-8.2) g/dL Albumin (3.4-5.0) g/dL Globulin (2.3-3.5) g/dL Albumin/Globulin Ratio (1.2-2.2) Procalcitonin ng/mL Urine Color Urine Appearance Urine pH (4.5-8.0) Ur Specific [place] (1.008-1.030) Urine Protein (NEGATIVE) mg/dL Urine Glucose (UA) (NEGATIVE) mg/dL Urine Ketones (NEGATIVE) mg/dL Urine Occult Blood (NEGATIVE) Urine Nitrite (NEGATIVE) Urine Bilirubin (NEGATIVE) Urine Urobilinogen (NORMAL) mg/dL Ur Leukocyte Esterase (NEGATIVE) Urine RBC (0-5) Urine WBC (0-5) Ur Epithelial Cells Amorphous Sediment Urine Bacteria Urine Mucus Urine Other Result Diagrams: 03/11/19 21:56 03/11/19 21:56 - Problem List (1) Dehydration SNOMED Code(s): 79968360 ICD Code: E86.0 - DEHYDRATION Status: Acute Priority: High Current Visit: Yes (2) Weakness SNOMED Code(s): 49793220 ICD Code: R53.1 - WEAKNESS Status: Acute Priority: High Current Visit: Yes (3) Atrial fibrillation SNOMED Code(s): 78785370 ICD Code: I48.91 - UNSPECIFIED ATRIAL FIBRILLATION Status: Acute Priority : High Current Visit: Yes Qualifiers: Atrial fibrillation type: unspecified Qualified Code(s): I48.91 - Unspecified atrial fibrillation Problem List Initiated/Reviewed/Updated: Yes Orders Last 24hrs: Active Orders 24 hr Category Date Time Status Patient Status Manage Transfer [TRANSFER] Routine ADT 03/12/19 01:03 Ordered CULTURE BLOOD [BC] Urgent Lab 03/11/19 22:00 Received CULTURE BLOOD [BC] Urgent Lab 03/11/19 22:10 Received Sodium Chloride 0.9% [Normal Saline] 1,000 ml Med 03/11/19 22:15 Active IV ASDIRECTED Blood Culture x2 Reflex Set [OM.PC] Urgent Oth 03/11/19 21:56 Ordered Resuscitation Status Routine Resus Stat 03/12/19 01:06 Ordered Medication Orders Sodium Chloride (Normal Saline) 1,000 mls @ 500 mls/hr IV ASDIRECTED IRENE Last Admin: 03/11/19 22:28 Dose: 500 mls/hr Assessment/Plan Comment:: ASSESSMENT / PLAN This is a 88 year old female presents to ER via POV with concerns of sudden onset of weakness with mild nausea. She was unable to get up from chair, was trying to use the TV remote to call her family. Prior to today's event Mrs. Ca has been able to ambulate and did not have any impairment prior to today. Family reports fever of 102.8 at home. reports not feeling well for 3 to 4 days. labs done is ER , CBC; wbc 3.2, hgb 10.4, hct 31.2, plt 79 BMP Na+134, K+3.7, cl 101, anion gap 9.7, bun 21, cr 0.9, glucose 59., Urine with micro + small leukocyts, WBC 5-10, RBC 5-10, blood cultures x 2 pending Imaging; CT abdomen-pelvis with contrast : non specific probable mild ileus and small amount of free pelvic fluid, etiology unclear. moderate distention of the urinary bladder and mild bilateral hydroureteronephrosis. non acute additional findings. Prior to transfer to [address] [place] [address], Mrs. Ca was noted to have heart rate 130, telemetry and EKG shows Atrial Fib. She denies any chest pain, shortness of breath or any symptoms. Blood pressure 115/67. unknown length of time in A.Fib , will treat with Metoprolol 25 mg po once , if does not responds will consider Digoxin [address] Tse. Will plan to admit OBS to treat symptoms and reassess in am. Weakness -IV Rocephin 1 gram, for early bladder infection. -IV hydration with NS at 100ml/hr -referral to OT and PT for discharge planning -blood cultures x 2 pending -reassess in am Atrial Fibrillation -give Metoprolol 25 mg po now -if heart rate does not respond to Metoprolol may consider Digoxin 125mcg po once -telemetry -vital sign every 4 hours. Maintenance issues -Orders home meds: has one Tylenol, vitamin, HTN medication -Nutrition: Regular diet -Nagy catheter not indicated at this time -DVT:SCD -GI Prophalaxis; Protonix 40mg daily CODE STATUS: Full Admission status: Admit to Observation -I expect this patient to stay less than 24 hours, not to exceed 96 hours for evaluation and management of this problem. Disposition: home with family Primary care provider:RAY Hilton Hospitalist: Dr. Tse
[2019-03-12] MEDS ORDERED: Ondansetron 4 MG/2 ML SDV IV PRN (02:16)
[2019-03-12] MEDS ORDERED: Bisacodyl 5 MG Tab PO PRN (02:16)
[2019-03-12] MEDS ORDERED: Albuterol 0.083% 2.5 MG/3 ML Neb Soln NEB PRN (02:16)
[2019-03-12] MEDS ORDERED: Ondansetron 4 MG Tab.DIS PO PRN (02:16)
[2019-03-12] MEDS ORDERED: Docusate Sodium 100 MG Cap PO PRN (02:16)
[2019-03-12] MEDS: Metoprolol Tartrate 25 MG Tab PO ONE ×2 (02:21→02:43)
[2019-03-12] MEDS: cefTRIAXone 1 GM in Sodium Chloride 0.9% 50 ML IV SCH (02:42)
[2019-03-12] MEDS: Sodium Chloride 0.9% 1,000 ML IV SCH ×2 (05:57→10:20)
[2019-03-12] MEDS: Acetaminophen 325 MG Tab PO PRN ×3 (08:48→17:04)
[2019-03-12] MEDS: Pantoprazole 40 MG Tab.CR PO SCH (08:49)
[2019-03-12] MEDS ORDERED: Hydrochlorothiazide/Triamterene 25-37.5 Tab PO SCH (09:00)
--- NOTE | 2019-03-12 10:42 | PCM.PN ---
- General Info Date of Service: 03/12/19 Subjective Update: Brandy was admitted last night for management of generalized weakness and presumed urinary tract infection. Shortly after admission she went into atrial fibrillation with a rapid ventricular response. She is asymptomatic with the rhythm but has fairly impressive tachycardia when she is up and moving around with rates up to 150. At rest the rate is 110-120. No fevers since admission. Urine culture was set up this morning. In general the patient says she feels fairly well and had a good breakfast. Blood pressure is on the low side of normal. She complains of left hip pain but has no other pain concerns. She did have a large incontinent mixture of stool and urine. Functional Status: Reports: Pain Controlled, Tolerating Diet - Review of Systems General: Reports: Weakness Pulmonary: Denies: Shortness of Breath - Patient Data Vitals - Most Recent: Last Vital Signs Temp 36.6 C 03/12/19 07:23 Pulse 84 03/12/19 07:23 Resp 16 03/12/19 07:23 BP 88/48 L 03/12/19 07:23 Pulse Ox 97 03/12/19 07:23 Weight - Most Recent: 69.309 kg I&O - Last 24 Hours: Intake & Output 03/11/19 03/12/19 03/12/19 22:59 06:59 14:59 Output Total 1350 Balance -1350 Lab Results Last 24 Hours: Laboratory Results - last 24 hr 03/11/19 03/11/19 03/11/19 Range/Units 21:44 21:56 21:56 WBC 3.2 L (4.5-11.0) K/uL RBC 3.34 (3.30-5.50) M/uL Hgb 10.4 L (12.0-15.0) g/dL Hct 31.2 L (36.0-48.0) % MCV 93 (80-98) fL MCH 31 (27-31) pg MCHC 33 (32-36) % Plt Count 79 L (150-400) K/uL Neut % (Auto) 39 (36-66) % Lymph % (Auto) 44 (24-44) % [place] % (Auto) 13 H (2-6) % Eos % (Auto) 0 L (2-4) % Baso % (Auto) 4 H (0-1) % Sodium 134 L (140-148) mmol/L Potassium 3.7 (3.6-5.2) mmol/L Chloride 101 (100-108) mmol/L Carbon Dioxide 27 (21-32) mmol/L Anion Gap 9.7 (5.0-14.0) mmol/L BUN 21 H (7-18) mg/dL Creatinine 0.9 (0.6-1.0) mg/dL Est Cr Clr Drug Dosing 37.31 mL/min Estimated GFR (MDRD) 59 L (>60) Glucose 113 H (74-106) mg/dL Lactic Acid (0.4-2.0) mmol/L Calcium 8.9 (8.5-10.1) mg/dL Total Bilirubin 0.6 D (0.2-1.0) mg/dL AST 53 H D (15-37) U/L ALT 44 D (12-78) U/L Alkaline Phosphatase 71 (46-116) U/L Total Protein 5.9 L (6.4-8.2) g/dL Albumin 3.1 L (3.4-5.0) g/dL Globulin 2.8 (2.3-3.5) g/dL Albumin/Globulin Ratio 1.1 L (1.2-2.2) Procalcitonin 0.92 ng/mL Urine Color [place] Urine Appearance Clear Urine pH 6.0 (4.5-8.0) Ur Specific [place] 1.015 (1.008-1.030) Urine Protein 30 H (NEGATIVE) mg/dL Urine Glucose (UA) Normal (NEGATIVE) mg/dL Urine Ketones Negative (NEGATIVE) mg/dL Urine Occult Blood Moderate (NEGATIVE) Urine Nitrite Negative (NEGATIVE) Urine Bilirubin Small (NEGATIVE) Urine Urobilinogen 8 (NORMAL) mg/dL Ur Leukocyte Esterase Small (NEGATIVE) Urine RBC 5-10 H (0-5) Urine WBC 5-10 H (0-5) Ur Epithelial Cells Moderate Amorphous Sediment Few Urine Bacteria Few Urine Mucus Moderate Urine Other See note 03/11/19 Range/Units 21:56 WBC (4.5-11.0) K/uL RBC (3.30-5.50) M/uL Hgb (12.0-15.0) g/dL Hct (36.0-48.0) % MCV (80-98) fL MCH (27-31) pg MCHC (32-36) % Plt Count (150-400) K/uL Neut % (Auto) (36-66) % Lymph % (Auto) (24-44) % [place] % (Auto) (2-6) % Eos % (Auto) (2-4) % Baso % (Auto) (0-1) % Sodium (140-148) mmol/L Potassium (3.6-5.2) mmol/L Chloride (100-108) mmol/L Carbon Dioxide (21-32) mmol/L Anion Gap (5.0-14.0) mmol/L BUN (7-18) mg/dL Creatinine (0.6-1.0) mg/dL Est Cr Clr Drug Dosing mL/min Estimated GFR (MDRD) (>60) Glucose (74-106) mg/dL Lactic Acid 1.0 (0.4-2.0) mmol/L Calcium (8.5-10.1) mg/dL Total Bilirubin (0.2-1.0) mg/dL AST (15-37) U/L ALT (12-78) U/L Alkaline Phosphatase (46-116) U/L Total Protein (6.4-8.2) g/dL Albumin (3.4-5.0) g/dL Globulin (2.3-3.5) g/dL Albumin/Globulin Ratio (1.2-2.2) Procalcitonin ng/mL Urine Color Urine Appearance Urine pH (4.5-8.0) Ur Specific [place] (1.008-1.030) Urine Protein (NEGATIVE) mg/dL Urine Glucose (UA) (NEGATIVE) mg/dL Urine Ketones (NEGATIVE) mg/dL Urine Occult Blood (NEGATIVE) Urine Nitrite (NEGATIVE) Urine Bilirubin (NEGATIVE) Urine Urobilinogen (NORMAL) mg/dL Ur Leukocyte Esterase (NEGATIVE) Urine RBC (0-5) Urine WBC (0-5) Ur Epithelial Cells Amorphous Sediment Urine Bacteria Urine Mucus Urine Other Med Orders - Current: Current Medications Acetaminophen (Tylenol) 650 mg PO Q4H PRN PRN Reason: Pain Last Admin: 03/12/19 09:01 Dose: 325 mg Albuterol (Proventil Neb Soln) 2.5 mg NEB Q4H PRN PRN Reason: Shortness Of Breath/wheezing Bisacodyl (Dulcolax) 5 mg PO DAILY PRN PRN Reason: Constipation Docusate Sodium (Colace) 100 mg PO BID PRN PRN Reason: Constipation Ceftriaxone Sodium 1 gm/ (Sodium Chloride) 50 mls @ 100 mls/hr IV Q24H [facility] Last Admin: 03/12/19 02:42 Dose: 100 mls/hr Sodium Chloride (Normal Saline) 1,000 mls @ 100 mls/hr IV ASDIRECTED [facility] Last Admin: 03/12/19 10:20 Dose: 100 mls/hr Amiodarone HCl 450 mg/ (Dextrose/Water) 250 mls @ 33.33 mls/hr IV ASDIRECTED [facility]; Protocol Amiodarone HCl/Dextrose 150 mg (/ Premix) 100 mls @ 400 mls/hr IV ONETIME ONE Stop: 03/12/19 11:14 Ondansetron HCl (Zofran Odt) 4 mg PO Q6H PRN PRN Reason: Nausea able to take PO Ondansetron HCl (Zofran) 4 mg IV Q4H PRN PRN Reason: Nausea/Vomiting Pantoprazole Sodium (Protonix) 40 mg PO ACBREAKFAST [facility] Last Admin: 03/12/19 08:49 Dose: 40 mg Discontinued Medications Sodium Chloride (Normal Saline) 1,000 mls @ 500 mls/hr IV ASDIRECTED [facility] Last Admin: 03/11/19 22:28 Dose: 500 mls/hr Sodium Chloride (Normal Saline) 70 mls @ 3 mls/sec IV ASDIRECTED STA Stop: 03/11/19 23:20 Last Admin: 03/11/19 23:37 Dose: 3 mls/sec Iopamidol (Isovue-300 (61%)) 100 ml IV . DIRECTED STA Stop: 03/11/19 23:20 Last Admin: 03/11/19 23:37 Dose: 100 ml Metoprolol Tartrate (Lopressor) 25 mg PO ONETIME ONE Stop: 03/12/19 01:41 Last Admin: 03/12/19 02:43 Dose: 25 mg Triamterene/HCTZ (Maxzide 25-37.5 Mg) 0.5 each PO DAILY [facility] Last Admin: 03/12/19 08:49 Dose: 0.5 each - Exam Quality Assessment: No: Supplemental Oxygen General: Alert, Oriented, Cooperative, No Acute Distress Lungs: Clear to Auscultation, Normal Respiratory Effort Cardiovascular: No Murmurs, Irregular Rhythm, Tachycardia GI/Abdominal Exam: Soft, No Distention Extremities: No Pedal Edema. No: Increased Warmth Skin: Warm, Dry Psy/Mental Status: Alert, Normal Affect - Problem List & Annotations (1) Acute cystitis without hematuria SNOMED Code(s): 02620093 Code(s): N30.00 - ACUTE CYSTITIS WITHOUT HEMATURIA Status: Acute Current Visit: Yes (2) Paroxysmal atrial fibrillation with rapid ventricular response SNOMED Code(s): 511063907, [id number] Code(s): I48.0 - PAROXYSMAL ATRIAL FIBRILLATION Status: Acute Current Visit: Yes (3) Essential hypertension SNOMED Code(s): 48379847 Code(s): I10 - ESSENTIAL (PRIMARY) HYPERTENSION Status: Chronic Current Visit: No - Problem List Review Problem List Initiated/Reviewed/Updated: Yes - My Orders Last 24 Hours: My Active Orders 03/12/19 09:59 CULTURE URINE [RM] Routine 03/12/19 10:35 BASIC METABOLIC PANEL,BMP [CHEM] Urgent TSH ULTRASENSITIVE [CHEM] Urgent 03/12/19 10:36 Transfer Patient (Change bed) [ADT] Routine 03/12/19 10:37 Admission Status [Patient Status] [ADT] Routine 03/12/19 10:38 Cardiac Monitoring [RC] .As Directed 03/12/19 10:41 MAGNESIUM [CHEM] Urgent 03/12/19 10:45 Amiodarone 450 MG in D5W @ 1 MG/MIN(250ml) Amiodarone [Cordarone] 450 mg Dextrose 5% in Water 241 ml IV ASDIRECTED 03/12/19 11:00 Amiodarone In Dextrose,Iso-Osm [Nexterone in Dextrose 150 MG/100 ML] 150 mg Premix Bag 1 bag IV ONETIME - Plan Plan:: ASSESSMENT / PLAN Probable urinary tract infection - urinary symptoms and dark foul-smelling urine. Pro calcitonin was elevated at nearly 1 which is strongly suggestive of bacterial infection. Though the criteria for infection were not impressive on the urinalysis. Febrile prior to admission but none since. Generalized weakness likely related to infection. -Continue ceftriaxone -Gentle IV fluids -Follow-up cultures -Physical therapy for strengthening Paroxysmal atrial fibrillation with rapid ventricular response - patient went into atrial fibrillation last night. She has ordered Hypotensive at this time with no room for beta eduardo or calcium channel eduardo at this time. -Transfer to the intensive care unit for Amiodarone load and infusion -Cardiac monitoring -Echocardiogram -Magnesium level Essential hypertension - patient normally on combination of hydrochlorothiazide/ triamterene. Blood pressure is low normal at this time. -Discontinue antihypertensive Maintenance issues -Nutrition: Regular diet -Nagy catheter not indicated at this time -DVT:SCD -GI Prophalaxis; Protonix 40mg daily Admission status: patient was initially admitted to inpatient status. With probable infection and poorly controlled atrial fibrillation with hypotension the patient will be transitioned to inpatient status at this time. Disposition: home with family Bijan Tse M.D.
[2019-03-12] MEDS ORDERED: Amiodarone In Dextrose,Iso-Osm 150 MG in Premix Bag 1 BAG IV ONE ×2 (11:00)
[2019-03-12] MEDS ORDERED: Sodium Chloride 0.9% 1,000 ML IV SCH (12:45)
[2019-03-12] MEDS ORDERED: Magnesium Sulfate/Water 2 GM in Premix Bag 1 BAG IV ONE (13:00)
[2019-03-13] MEDS: cefTRIAXone 1 GM in Sodium Chloride 0.9% 50 ML IV SCH (01:46)
[2019-03-13] MEDS: Pantoprazole 40 MG Tab.CR PO SCH (08:03)
[2019-03-13] MEDS: Acetaminophen 325 MG Tab PO PRN (09:37)
--- NOTE | 2019-03-13 10:42 | PCM.PN ---
- General Info Date of Service: 03/13/19 Subjective Update: Patient has remained in sinus rhythm with intermittent bradycardia but overall acceptable heart rate. She is very weak and has difficulty with standing and pivoting today. She did have a fever yesterday afternoon and was confused at that time. Blood pressure has remained stable. Urine culture is not displaying any growth at this time. Appetite has been fair. Functional Status: Reports: Pain Controlled, Tolerating Diet - Review of Systems General: Reports: Fever, Weakness Gastrointestinal: Denies: Abdominal Pain, Diarrhea - Patient Data Vitals - Most Recent: Last Vital Signs Temp 36.7 C 03/13/19 04:00 Pulse 59 L 03/13/19 06:00 Resp 17 03/13/19 06:00 BP 108/42 L 03/13/19 06:00 Pulse Ox 98 03/13/19 06:00 Weight - Most Recent: 69.309 kg I&O - Last 24 Hours: Intake & Output 03/12/19 03/13/19 03/13/19 22:59 06:59 14:59 Intake Total 863 826 Output Total 350 350 Balance 513 476 Lab Results Last 24 Hours: Laboratory Results - last 24 hr 03/12/19 03/12/19 03/13/19 Range/Units 10:44 10:44 05:00 WBC 4.5 (4.5-11.0) K/uL RBC 3.32 (3.30-5.50) M/uL Hgb 9.9 L (12.0-15.0) g/dL Hct 31.1 L (36.0-48.0) % MCV 94 (80-98) fL MCH 30 (27-31) pg MCHC 32 (32-36) % Plt Count 103 L (150-400) K/uL Sodium 138 L (140-148) mmol/L Potassium 3.7 (3.6-5.2) mmol/L Chloride 104 (100-108) mmol/L Carbon Dioxide 25 (21-32) mmol/L Anion Gap 12.7 (5.0-14.0) mmol/L BUN 15 (7-18) mg/dL Creatinine 1.0 (0.6-1.0) mg/dL Est Cr Clr Drug Dosing 30.49 mL/min Estimated GFR (MDRD) 52 L (>60) Glucose 159 H (74-106) mg/dL Calcium 8.8 (8.5-10.1) mg/dL Magnesium 1.5 L (1.8-2.4) mg/dL TSH, Ultra Sensitive 2.116 (0.358-3.740) uIU/mL 03/13/19 Range/Units 05:00 WBC (4.5-11.0) K/uL RBC (3.30-5.50) M/uL Hgb (12.0-15.0) g/dL Hct (36.0-48.0) % MCV (80-98) fL MCH (27-31) pg MCHC (32-36) % Plt Count (150-400) K/uL Sodium 137 L (140-148) mmol/L Potassium 3.8 (3.6-5.2) mmol/L Chloride 104 (100-108) mmol/L Carbon Dioxide 25 (21-32) mmol/L Anion Gap 11.8 (5.0-14.0) mmol/L BUN 19 H (7-18) mg/dL Creatinine 1.0 (0.6-1.0) mg/dL Est Cr Clr Drug Dosing 30.49 mL/min Estimated GFR (MDRD) 52 L (>60) Glucose 102 (74-106) mg/dL Calcium 8.6 (8.5-10.1) mg/dL Magnesium (1.8-2.4) mg/dL TSH, Ultra Sensitive (0.358-3.740) uIU/mL Jonathan Results Last 24 Hours: Microbiology 03/12/19 09:59 Urine Culture - Preliminary Urine, Clean Catch NO GROWTH AFTER 1 DAY 03/11/19 22:10 Aerobic Blood Culture - Preliminary Blood - Venous - Lab Draw NO GROWTH AFTER 1 DAY Anaerobic Blood Culture - Preliminary NO GROWTH AFTER 1 DAY 03/11/19 22:00 Aerobic Blood Culture - Preliminary Blood - Venous NO GROWTH AFTER 1 DAY Anaerobic Blood Culture - Preliminary NO GROWTH AFTER 1 DAY Med Orders - Current: Current Medications Acetaminophen (Tylenol) 650 mg PO Q4H PRN PRN Reason: Pain Last Admin: 03/13/19 09:37 Dose: 650 mg Albuterol (Proventil Neb Soln) 2.5 mg NEB Q4H PRN PRN Reason: Shortness Of Breath/wheezing Amiodarone HCl (Cordarone) 200 mg PO DAILY [facility] Bisacodyl (Dulcolax) 5 mg PO DAILY PRN PRN Reason: Constipation Docusate Sodium (Colace) 100 mg PO BID PRN PRN Reason: Constipation Ceftriaxone Sodium 1 gm/ (Sodium Chloride) 50 mls @ 100 mls/hr IV Q24H [facility] Last Admin: 03/13/19 01:46 Dose: 100 mls/hr Ondansetron HCl (Zofran Odt) 4 mg PO Q6H PRN PRN Reason: Nausea able to take PO Ondansetron HCl (Zofran) 4 mg IV Q4H PRN PRN Reason: Nausea/Vomiting Pantoprazole Sodium (Protonix) 40 mg PO ACBREAKFAST [facility] Last Admin: 03/13/19 08:03 Dose: 40 mg Discontinued Medications Sodium Chloride (Normal Saline) 1,000 mls @ 500 mls/hr IV ASDIRECTED [facility] Last Admin: 03/11/19 22:28 Dose: 500 mls/hr Sodium Chloride (Normal Saline) 70 mls @ 3 mls/sec IV ASDIRECTED [facility] Stop: 03/11/19 23:20 Last Admin: 03/11/19 23:37 Dose: 3 mls/sec Sodium Chloride (Normal Saline) 1,000 mls @ 100 mls/hr IV ASDIRECTED [facility] Last Admin: 03/12/19 10:20 Dose: 100 mls/hr Amiodarone HCl 450 mg/ (Dextrose/Water) 250 mls @ 33.33 mls/hr IV ASDIRECTED [facility]; Protocol Last Admin: 03/12/19 11:25 Dose: 1 mg/min, 33.33 mls/hr Amiodarone HCl/Dextrose 150 mg (/ Premix) 100 mls @ 400 mls/hr IV ONETIME ONE Stop: 03/12/19 11:14 Last Admin: 03/12/19 11:07 Dose: 400 mls/hr Sodium Chloride (Normal Saline) 1,000 mls @ 25 mls/hr IV ASDIRECTED [facility] Magnesium Sulfate 2 gm/ Premix 50 mls @ 12.5 mls/hr IV ONETIME ONE Stop: 03/12/19 16:59 Last Admin: 03/12/19 12:59 Dose: 12.5 mls/hr Iopamidol (Isovue-300 (61%)) 100 ml IV . DIRECTED [facility] Stop: 03/11/19 23:20 Last Admin: 03/11/19 23:37 Dose: 100 ml Metoprolol Tartrate (Lopressor) 25 mg PO ONETIME ONE Stop: 03/12/19 01:41 Last Admin: 03/12/19 02:43 Dose: 25 mg Triamterene/HCTZ (Maxzide 25-37.5 Mg) 0.5 each PO DAILY [facility] Last Admin: 03/12/19 08:49 Dose: 0.5 each - Exam Quality Assessment: Supplemental Oxygen General: Alert, Oriented, Cooperative, No Acute Distress Neck: Supple Lungs: Clear to Auscultation, Normal Respiratory Effort, Decreased Breath Sounds (mild both bases) Cardiovascular: Regular Rate, Regular Rhythm GI/Abdominal Exam: Soft, No Distention Extremities: No Pedal Edema. No: Increased Warmth Skin: Warm, Dry Psy/Mental Status: Alert, Normal Affect - Problem List & Annotations (1) Acute cystitis without hematuria SNOMED Code(s): 67889871 Code(s): N30.00 - ACUTE CYSTITIS WITHOUT HEMATURIA Status: Acute Current Visit: Yes (2) Paroxysmal atrial fibrillation with rapid ventricular response SNOMED Code(s): 248890204, 328880904780832 Code(s): I48.0 - PAROXYSMAL ATRIAL FIBRILLATION Status: Acute Current Visit: Yes (3) Essential hypertension SNOMED Code(s): 79639251 Code(s): I10 - ESSENTIAL (PRIMARY) HYPERTENSION Status: Chronic Current Visit: No - Problem List Review Problem List Initiated/Reviewed/Updated: Yes - My Orders Last 24 Hours: My Active Orders 03/12/19 09:59 CULTURE URINE [RM] Routine 03/12/19 10:36 Transfer Patient (Change bed) [ADT] Routine 03/12/19 10:37 Admission Status [Patient Status] [ADT] Routine 03/12/19 10:42 Echo Comp wo Cont [US] Routine 03/13/19 10:37 Convert IV to Saline Lock [OM.PC] Routine 03/13/19 10:38 Transfer Patient (Change bed) [ADT] Routine Discontinue Telemetry Monitoring [Cardiac Monitoring Discontinue] [RC] Click to Edit 03/13/19 10:45 Amiodarone [Cordarone] 200 mg PO DAILY 03/14/19 05:00 BASIC METABOLIC PANEL,BMP [CHEM] Timed CBC W/O DIFF,HEMOGRAM [HEME] Timed (1) - Plan Plan:: ASSESSMENT / PLAN Probable urinary tract infection - urinary symptoms and elevated pro- calcitonin. Culture with no growth so far but no other obvious source for infection. She is very weak at this time and not safe for outpatient management. -Continue ceftriaxone -Saline lock IV fluids -Follow-up cultures -Physical therapy for strengthening Paroxysmal atrial fibrillation with rapid ventricular response - patient is back in sinus rhythm with amiodarone. Echocardiogram showed good cardiac function and no major valve abnormalities. -Transition to oral amiodarone today, anticipate short course, possibly 2 weeks -Discontinue cardiac monitoring Essential hypertension - patient normally on combination of hydrochlorothiazide/ triamterene. Blood pressure is low normal at this time. -Discontinue antihypertensive Maintenance issues - -Nutrition - Regular diet -Nagy catheter - not indicated at this time -DVT - SCD -GI Prophalaxis - Protonix 40mg daily Admission status - patient was initially admitted to inpatient status. With probable infection and poorly controlled atrial fibrillation with hypotension the patient will be transitioned to inpatient status at this time. Disposition - I would anticipate discharge home with home care versus probably more likely a short rehabilitation stay at the [place] [facility] Bijan Tse M.D.
[2019-03-13] MEDS: Amiodarone 200 MG Tab PO SCH (11:25)
[2019-03-14] MEDS: cefTRIAXone 1 GM in Sodium Chloride 0.9% 50 ML IV SCH (02:43)
[2019-03-14] MEDS: Pantoprazole 40 MG Tab.CR PO SCH (07:44)
[2019-03-14] MEDS: Amiodarone 200 MG Tab PO SCH ×2 (08:20→20:26)
[2019-03-14] MEDS ORDERED: Amiodarone In Dextrose,Iso-Osm 150 MG in Premix Bag 1 BAG IV ONE ×2 (10:15)
--- NOTE | 2019-03-14 10:49 | PCM.PN ---
- General Info Date of Service: 03/14/19 Subjective Update: There were no acute events overnight. Pt did have an episode with generalized weakness, mild confusion and possible slight facial droop yesterday afternoon that resolved after a short while. No recurrence. No fevers overnight. Still very weak. BP remains on the low side of normal. She went back into atrial fibrillation overnight and has had mild tachycardia. No complaints of shortness of breath or abdominal pain. No diarrhea. Urine culture remains negative as do the blood cultures. Functional Status: Reports: Pain Controlled, Tolerating Diet - Review of Systems General: Reports: Weakness. Denies: Fever - Patient Data Vitals - Most Recent: Last Vital Signs Temp 37.1 C 03/14/19 04:00 Pulse 98 03/14/19 07:55 Resp 18 03/14/19 07:55 BP 96/54 L 03/14/19 07:55 Pulse Ox 95 03/14/19 07:55 Weight - Most Recent: 69.309 kg I&O - Last 24 Hours: Intake & Output 03/13/19 03/14/19 03/14/19 22:59 06:59 14:59 Intake Total 720 240 Output Total 600 550 Balance 120 -310 Lab Results Last 24 Hours: Laboratory Results - last 24 hr 03/14/19 03/14/19 Range/Units 05:43 05:43 WBC 5.7 (4.5-11.0) K/uL RBC 3.48 (3.30-5.50) M/uL Hgb 10.4 L (12.0-15.0) g/dL Hct 32.4 L (36.0-48.0) % MCV 93 (80-98) fL MCH 30 (27-31) pg MCHC 32 (32-36) % Plt Count 137 L (150-400) K/uL Sodium 136 L (140-148) mmol/L Potassium 3.7 (3.6-5.2) mmol/L Chloride 104 (100-108) mmol/L Carbon Dioxide 25 (21-32) mmol/L Anion Gap 10.7 (5.0-14.0) mmol/L BUN 16 (7-18) mg/dL Creatinine 0.9 (0.6-1.0) mg/dL Est Cr Clr Drug Dosing 33.88 mL/min Estimated GFR (MDRD) 59 L (>60) Glucose 103 (74-106) mg/dL Calcium 8.3 L (8.5-10.1) mg/dL Jonathan Results Last 24 Hours: Microbiology 03/12/19 09:59 Urine Culture - Final Urine, Clean Catch NO GROWTH AFTER 2 DAYS 03/11/19 22:00 Aerobic Blood Culture - Preliminary Blood - Venous NO GROWTH AFTER 2 DAYS Anaerobic Blood Culture - Preliminary NO GROWTH AFTER 2 DAYS 03/11/19 22:10 Aerobic Blood Culture - Preliminary Blood - Venous - Lab Draw NO GROWTH AFTER 2 DAYS Anaerobic Blood Culture - Preliminary NO GROWTH AFTER 2 DAYS Med Orders - Current: Current Medications Acetaminophen (Tylenol) 650 mg PO Q4H PRN PRN Reason: Pain Last Admin: 03/13/19 09:37 Dose: 650 mg Albuterol (Proventil Neb Soln) 2.5 mg NEB Q4H PRN PRN Reason: Shortness Of Breath/wheezing Amiodarone HCl (Cordarone) 200 mg PO BID [facility] Bisacodyl (Dulcolax) 5 mg PO DAILY PRN PRN Reason: Constipation Cefdinir (Omnicef) 300 mg PO BID [facility] Docusate Sodium (Colace) 100 mg PO BID PRN PRN Reason: Constipation Ondansetron HCl (Zofran Odt) 4 mg PO Q6H PRN PRN Reason: Nausea able to take PO Ondansetron HCl (Zofran) 4 mg IV Q4H PRN PRN Reason: Nausea/Vomiting Pantoprazole Sodium (Protonix) 40 mg PO ACBREAKFAST [facility] Last Admin: 03/14/19 07:44 Dose: 40 mg Discontinued Medications Amiodarone HCl (Cordarone) 200 mg PO DAILY [facility] Last Admin: 03/14/19 08:20 Dose: 200 mg Sodium Chloride (Normal Saline) 1,000 mls @ 500 mls/hr IV ASDIRECTED [facility] Last Admin: 03/11/19 22:28 Dose: 500 mls/hr Sodium Chloride (Normal Saline) 70 mls @ 3 mls/sec IV ASDIRECTED [facility] Stop: 03/11/19 23:20 Last Admin: 03/11/19 23:37 Dose: 3 mls/sec Ceftriaxone Sodium 1 gm/ (Sodium Chloride) 50 mls @ 100 mls/hr IV Q24H [facility] Last Admin: 03/14/19 02:43 Dose: 100 mls/hr Sodium Chloride (Normal Saline) 1,000 mls @ 100 mls/hr IV ASDIRECTED [facility] Last Admin: 03/12/19 10:20 Dose: 100 mls/hr Amiodarone HCl 450 mg/ (Dextrose/Water) 250 mls @ 33.33 mls/hr IV ASDIRECTED [facility]; Protocol Last Admin: 03/12/19 11:25 Dose: 1 mg/min, 33.33 mls/hr Amiodarone HCl/Dextrose 150 mg (/ Premix) 100 mls @ 400 mls/hr IV ONETIME ONE Stop: 03/12/19 11:14 Last Admin: 03/12/19 11:07 Dose: 400 mls/hr Sodium Chloride (Normal Saline) 1,000 mls @ 25 mls/hr IV ASDIRECTED [facility] Magnesium Sulfate 2 gm/ Premix 50 mls @ 12.5 mls/hr IV ONETIME ONE Stop: 03/12/19 16:59 Last Admin: 03/12/19 12:59 Dose: 12.5 mls/hr Amiodarone HCl/Dextrose 150 mg (/ Premix) 100 mls @ 400 mls/hr IV NOW ONE Stop: 03/14/19 10:29 Last Admin: 03/14/19 10:10 Dose: 400 mls/hr Iopamidol (Isovue-300 (61%)) 100 ml IV . DIRECTED [facility] Stop: 03/11/19 23:20 Last Admin: 03/11/19 23:37 Dose: 100 ml Metoprolol Tartrate (Lopressor) 25 mg PO ONETIME ONE Stop: 03/12/19 01:41 Last Admin: 03/12/19 02:43 Dose: 25 mg Triamterene/HCTZ (Maxzide 25-37.5 Mg) 0.5 each PO DAILY [facility] Last Admin: 03/12/19 08:49 Dose: 0.5 each - Exam Quality Assessment: No: Supplemental Oxygen General: Alert, Oriented, Cooperative, No Acute Distress Lungs: Clear to Auscultation, Normal Respiratory Effort, Decreased Breath Sounds (mild both bases) Cardiovascular: Irregular Rhythm, Tachycardia GI/Abdominal Exam: Soft, No Distention Extremities: No Pedal Edema. No: Increased Warmth Skin: Warm, Dry Psy/Mental Status: Alert, Normal Affect - Problem List & Annotations (1) Acute cystitis without hematuria SNOMED Code(s): 49829059 Code(s): N30.00 - ACUTE CYSTITIS WITHOUT HEMATURIA Status: Acute Current Visit: Yes (2) Paroxysmal atrial fibrillation with rapid ventricular response SNOMED Code(s): 930008530, 010226908318163 Code(s): I48.0 - PAROXYSMAL ATRIAL FIBRILLATION Status: Acute Current Visit: Yes (3) Essential hypertension SNOMED Code(s): 91202695 Code(s): I10 - ESSENTIAL (PRIMARY) HYPERTENSION Status: Chronic Current Visit: No - Problem List Review Problem List Initiated/Reviewed/Updated: Yes - My Orders Last 24 Hours: My Active Orders 03/13/19 10:37 Convert IV to Saline Lock [OM.PC] Routine 03/13/19 10:38 Transfer Patient (Change bed) [ADT] Routine Discontinue Telemetry Monitoring [Cardiac Monitoring Discontinue] [RC] Click to Edit 03/14/19 10:47 Cardiac Monitoring [RC] CONTINUOUS 03/14/19 21:00 Amiodarone [Cordarone] 200 mg PO BID Cefdinir [Omnicef] 300 mg PO BID - Plan Plan:: ASSESSMENT / PLAN Probable urinary tract infection - urinary symptoms and elevated pro- calcitonin. Culture with no growth so far but no other obvious source for infection. No recurrence of fever. No new symptoms. She remains extremely weak. -Transition to oral antibiotics -Saline lock IV fluids -Follow-up cultures -Physical therapy for strengthening Paroxysmal atrial fibrillation with rapid ventricular response - patient is now back and atrial fibrillation. She had her amiodarone loading this morning. Blood pressure remains on the low side of normal and diltiazem is not a viable option. -Rebolus with amiodarone and increased oral medication to twice daily -Consider digoxin if additional rate control as needed -cardiac monitoring Essential hypertension - blood pressure remains low. -Discontinue antihypertensive Maintenance issues - -Nutrition - Regular diet -Nagy catheter - not indicated at this time -DVT - SCD -GI Prophalaxis - Protonix 40mg daily Admission status - patient was initially admitted to inpatient status. With probable infection and poorly controlled atrial fibrillation with hypotension the patient will be transitioned to inpatient status at this time. Disposition - I would anticipate discharge to the [facility] on Saturday or Saturday Bijan Tse M.D.
[2019-03-14] MEDS: Cefdinir 300 MG Cap PO SCH (20:26)
[2019-03-15] MEDS: Acetaminophen 325 MG Tab PO PRN (07:45)
[2019-03-15] MEDS: Pantoprazole 40 MG Tab.CR PO SCH (07:45)
--- NOTE | 2019-03-15 09:45 | PCM.PN ---
- General Info Date of Service: 03/15/19 Subjective Update: There were no acute events overnight. The patient remains in atrial fibrillation with a controlled rate. She does not feel short of breath. She does not have any abdominal pain. She remains very weak and requires extensive assistance to get from the bed to the chair. There have been no reports of confusion. She has not had any fevers. Appetite has been good. Cultures remain negative. Functional Status: Reports: Pain Controlled, Tolerating Diet - Review of Systems General: Reports: Weakness Pulmonary: Denies: Shortness of Breath - Patient Data Vitals - Most Recent: Last Vital Signs Temp 36.6 C 03/15/19 07:57 Pulse 111 H 03/15/19 07:57 Resp 18 03/15/19 07:57 BP 114/57 L 03/15/19 07:57 Pulse Ox 94 L 03/15/19 07:57 Weight - Most Recent: 69.309 kg I&O - Last 24 Hours: Intake & Output 03/14/19 03/15/19 03/15/19 22:59 06:59 14:59 Intake Total 750 290 360 Output Total 350 625 Balance 400 -335 360 Jonathan Results Last 24 Hours: Microbiology 03/11/19 22:00 Aerobic Blood Culture - Preliminary Blood - Venous NO GROWTH AFTER 3 DAYS Anaerobic Blood Culture - Preliminary NO GROWTH AFTER 3 DAYS 03/11/19 22:10 Aerobic Blood Culture - Preliminary Blood - Venous - Lab Draw NO GROWTH AFTER 3 DAYS Anaerobic Blood Culture - Preliminary NO GROWTH AFTER 3 DAYS 03/12/19 09:59 Urine Culture - Final Urine, Clean Catch NO GROWTH AFTER 2 DAYS Med Orders - Current: Current Medications Acetaminophen (Tylenol) 650 mg PO Q4H PRN PRN Reason: Pain Last Admin: 03/15/19 07:45 Dose: 650 mg Albuterol (Proventil Neb Soln) 2.5 mg NEB Q4H PRN PRN Reason: Shortness Of Breath/wheezing Amiodarone HCl (Cordarone) 200 mg PO BID [facility] Last Admin: 03/14/19 20:26 Dose: 200 mg Bisacodyl (Dulcolax) 5 mg PO DAILY PRN PRN Reason: Constipation Cefdinir (Omnicef) 300 mg PO BID [facility] Last Admin: 03/14/19 20:26 Dose: 300 mg Docusate Sodium (Colace) 100 mg PO BID PRN PRN Reason: Constipation Last Admin: 03/15/19 07:45 Dose: 100 mg Ondansetron HCl (Zofran Odt) 4 mg PO Q6H PRN PRN Reason: Nausea able to take PO Ondansetron HCl (Zofran) 4 mg IV Q4H PRN PRN Reason: Nausea/Vomiting Pantoprazole Sodium (Protonix) 40 mg PO ACBREAKFAST [facility] Last Admin: 03/15/19 07:45 Dose: 40 mg Discontinued Medications Amiodarone HCl (Cordarone) 200 mg PO DAILY [facility] Last Admin: 03/14/19 08:20 Dose: 200 mg Sodium Chloride (Normal Saline) 1,000 mls @ 500 mls/hr IV ASDIRECTED [facility] Last Admin: 03/11/19 22:28 Dose: 500 mls/hr Sodium Chloride (Normal Saline) 70 mls @ 3 mls/sec IV ASDIRECTED [facility] Stop: 03/11/19 23:20 Last Admin: 03/11/19 23:37 Dose: 3 mls/sec Ceftriaxone Sodium 1 gm/ (Sodium Chloride) 50 mls @ 100 mls/hr IV Q24H [facility] Last Admin: 03/14/19 02:43 Dose: 100 mls/hr Sodium Chloride (Normal Saline) 1,000 mls @ 100 mls/hr IV ASDIRECTED [facility] Last Admin: 03/12/19 10:20 Dose: 100 mls/hr Amiodarone HCl 450 mg/ (Dextrose/Water) 250 mls @ 33.33 mls/hr IV ASDIRECTED [facility]; Protocol Last Admin: 03/12/19 11:25 Dose: 1 mg/min, 33.33 mls/hr Amiodarone HCl/Dextrose 150 mg (/ Premix) 100 mls @ 400 mls/hr IV ONETIME ONE Stop: 03/12/19 11:14 Last Admin: 03/12/19 11:07 Dose: 400 mls/hr Sodium Chloride (Normal Saline) 1,000 mls @ 25 mls/hr IV ASDIRECTED [facility] Magnesium Sulfate 2 gm/ Premix 50 mls @ 12.5 mls/hr IV ONETIME ONE Stop: 03/12/19 16:59 Last Admin: 03/12/19 12:59 Dose: 12.5 mls/hr Amiodarone HCl/Dextrose 150 mg (/ Premix) 100 mls @ 400 mls/hr IV NOW ONE Stop: 03/14/19 10:29 Last Admin: 03/14/19 10:10 Dose: 400 mls/hr Iopamidol (Isovue-300 (61%)) 100 ml IV . DIRECTED [facility] Stop: 03/11/19 23:20 Last Admin: 03/11/19 23:37 Dose: 100 ml Metoprolol Tartrate (Lopressor) 25 mg PO ONETIME ONE Stop: 03/12/19 01:41 Last Admin: 03/12/19 02:43 Dose: 25 mg Triamterene/HCTZ (Maxzide 25-37.5 Mg) 0.5 each PO DAILY [facility] Last Admin: 03/12/19 08:49 Dose: 0.5 each - Exam Quality Assessment: No: Supplemental Oxygen General: Alert, Oriented, Cooperative, No Acute Distress Lungs: Clear to Auscultation, Normal Respiratory Effort Cardiovascular: Regular Rate, Irregular Rhythm GI/Abdominal Exam: Soft, No Distention Extremities: No Pedal Edema. No: Increased Warmth Skin: Warm, Dry Psy/Mental Status: Alert, Normal Affect - Problem List & Annotations (1) Acute cystitis without hematuria SNOMED Code(s): 72018589 Code(s): N30.00 - ACUTE CYSTITIS WITHOUT HEMATURIA Status: Acute Current Visit: Yes (2) Paroxysmal atrial fibrillation with rapid ventricular response SNOMED Code(s): 884835490, [id number] Code(s): I48.0 - PAROXYSMAL ATRIAL FIBRILLATION Status: Acute Current Visit: Yes (3) Essential hypertension SNOMED Code(s): 92270624 Code(s): I10 - ESSENTIAL (PRIMARY) HYPERTENSION Status: Chronic Current Visit: No - Problem List Review Problem List Initiated/Reviewed/Updated: Yes - My Orders Last 24 Hours: My Active Orders 03/14/19 10:47 Cardiac Monitoring [RC] CONTINUOUS 03/14/19 14:35 Resuscitation Status Routine 03/14/19 21:00 Amiodarone [Cordarone] 200 mg PO BID Cefdinir [Omnicef] 300 mg PO BID - Plan Plan:: ASSESSMENT / PLAN Probable urinary tract infection - urinary symptoms and elevated pro- calcitonin. Culture with no growth so far but no other obvious source for infection. She has not had any fevers. Still very weak but slowly improving. -Transition to oral antibiotics -Saline lock IV fluids -Follow-up cultures -Physical therapy for strengthening Paroxysmal atrial fibrillation with rapid ventricular response - patient is back in atrial fibrillation for the second time and has remained there. Rate is controlled at this time with amiodarone. CHADSSVASC score is greater than 2 but I anticipate she will be back in sinus rhythm in the near future so we will defer anticoagulation at this time. -Continue twice daily amiodarone, anticipate short duration -Consider digoxin if additional rate control as needed -cardiac monitoring Essential hypertension - blood pressure remains on the low side of normal. Tolerating amiodarone so far. -Discontinue antihypertensive Maintenance issues - -Nutrition - Regular diet -Nagy catheter - not indicated at this time -DVT - SCD -GI Prophalaxis - Protonix 40mg daily Admission status - patient was initially admitted to inpatient status. With probable infection and poorly controlled atrial fibrillation with hypotension the patient will be transitioned to inpatient status at this time. Disposition - [facility] Bijan Tse M.D.
[2019-03-15] MEDS: Cefdinir 300 MG Cap PO SCH ×2 (10:20→21:02)
[2019-03-15] MEDS: Amiodarone 200 MG Tab PO SCH ×2 (10:21→21:02)
--- NOTE | 2019-03-15 14:31 | PCM.DCSUM1 ---
Discharge Summary - Hospital Course Brief History: 88-year-old female with history of essential hypertension who presented with fever and weakness as well as increased urinary frequency. She was admitted for management of presumed urinary tract infection, paroxysmal atrial fibrillation and weakness. Diagnosis: Stroke: No - Discharge Data Discharge Date: 03/16/19 Discharge Disposition: DC/Tfer to SNF 03 Condition: Fair - Discharge Diagnosis/Problem(s) (1) Acute cystitis without hematuria SNOMED Code(s): 23596152 ICD Code: N30.00 - ACUTE CYSTITIS WITHOUT HEMATURIA Status: Acute Current Visit: Yes (2) Paroxysmal atrial fibrillation with rapid ventricular response SNOMED Code(s): 948025960, [id number] ICD Code: I48.0 - PAROXYSMAL ATRIAL FIBRILLATION Status: Acute Current Visit: Yes (3) Essential hypertension SNOMED Code(s): 04694677 ICD Code: I10 - ESSENTIAL (PRIMARY) HYPERTENSION Status: Chronic Current Visit: No - Patient Summary/Data Consults: Consultations 03/12/19 02:16 PT Evaluation and Treatment [CONS] Routine Please Evaluate and Treat. PT Reason for Consult: Ambulation This query below is only for informational purposes and is not editable. Hospital Course: Brandy presented to the emergency room with generalized weakness, fever and urinary frequency. Workup in the emergency room was concerning for a possible urinary tract infection but unfortunately a urine culture was not set up at the time of admission. This was set up the morning after admission. She was started on antibiotics to cover a urinary tract infection and admitted to the hospital. Around the time of transfer from the ER to her inpatient bed she developed atrial fibrillation with a rapid ventricular response. She received a dose of metoprolol with some improvement in her heart rate. The morning after admission she remains in atrial fibrillation. Her blood pressure is on the low side of normal and her antihypertensive was discontinued. With her low blood pressures and somewhat rapid atrial fibrillation with rates in the 120-130 range I elected to load her with amiodarone and then provide a continuous infusion over the next 24 hours. Patient did convert while on the amiodarone infusion. She remained in sinus rhythm for about 24 hours before returning to atrial fibrillation. We increased her amiodarone to 200 mg twice daily and her heart rate has been controlled since that time. Regarding the urinary tract infection , her culture has been negative. There is no other obvious source of infection identified that she did have a CT scan of the abdomen and pelvis in the emergency room which did not show any acute findings. I suspect that she did have a urinary tract infection given her symptoms and fever and she has completed adequate antibiotic therapy at this time. She is weak because of the infection and would benefit from subacute rehabilitation. [facility]. For the atrial fibrillation, she will remain on the amiodarone for at least the next 2 weeks. If she is back in sinus rhythm we could consider discontinuing the medication at that time. If she remains in atrial fibrillation she will need to have anticoagulation considered on an outpatient basis. At this time her blood pressure remains on the low side of normal and we are unable to be utilized other medications for rate control. I did discontinue her antihypertensive and her blood pressures have remained low despite this. - Patient Instructions Diet: Regular Diet as Tolerated Activity: As Tolerated Showering/Bathing: May Shower Notify Provider of: Fever, Increased Pain, Nausea and/or Vomiting Other/Special Instructions: 1. You were in the hospital for management of presumed urinary tract infection though your culture was negative. You have completed adequate antibiotic therapy at this time. During your emergency room visit you developed atrial fibrillation with a rapid ventricular response. You are still in atrial fibrillation. Your rate is controlled with amiodarone. My hope is that your heart will return to a normal rhythm over the next several days to couple weeks. You should take amiodarone twice daily for at least the next 2 weeks and your heart rhythm can be reassessed at that time. 2. Referral to physical and occupational therapy for strengthening in the setting of generalized weakness following an acute infection. 3. Code status - DNR/DNI. 4. Follow up in 10 days. 5. Seek medical attention if you have fever greater than 101, persistent vomiting, severe diarrhea or severe shortness of breath. - Discharge Plan *PRESCRIPTION DRUG MONITORING PROGRAM REVIEWED*: Not Applicable *COPY OF PRESCRIPTION DRUG MONITORING REPORT IN PATIENT QUIN: Not Applicable Prescriptions/Med Rec: Amiodarone [Cordarone] 200 mg PO BID #20 tablet Home Medications: Home Meds Acetaminophen [Tylenol] 650 mg PO Q4H PRN tablet 11/19/18 [Rx] Fluorouracil 1 applic TOP ASDIRECTED 03/11/19 [History] Amiodarone [Cordarone] 200 mg PO BID #20 tablet 03/15/19 [Rx] Oxygen Therapy Mode: Room Air Patient Handouts: Atrial Fibrillation, [id number], Amiodarone tablets Referrals: Berna Rivera PA-C [Primary Care Provider] - (10 days - F/U hospital stay for presumed UTI and afib, consider stopping amiodarone if back in sinus rhythm ) - Discharge Summary/Plan Comment DC Time >30 min.: Yes (40 - new [facility] discharge) - Patient Data Vitals - Most Recent: Last Vital Signs Temp 36.3 C 03/15/19 11:00 Pulse 91 03/15/19 11:00 Resp 16 03/15/19 11:00 BP 121/78 03/15/19 11:00 Pulse Ox 98 03/15/19 11:00 Weight - Most Recent: 69.309 kg I&O - Last 24 hours: Intake & Output 03/14/19 03/15/19 03/15/19 22:59 06:59 14:59 Intake Total 750 290 360 Output Total 350 625 Balance 400 -335 360 BILL Results - Last 24 hrs: Microbiology 03/11/19 22:00 Aerobic Blood Culture - Preliminary Blood - Venous NO GROWTH AFTER 3 DAYS Anaerobic Blood Culture - Preliminary NO GROWTH AFTER 3 DAYS 03/11/19 22:10 Aerobic Blood Culture - Preliminary Blood - Venous - Lab Draw NO GROWTH AFTER 3 DAYS Anaerobic Blood Culture - Preliminary NO GROWTH AFTER 3 DAYS Med Orders - Current: Current Medications Acetaminophen (Tylenol) 650 mg PO Q4H PRN PRN Reason: Pain Last Admin: 03/15/19 07:45 Dose: 650 mg Albuterol (Proventil Neb Soln) 2.5 mg NEB Q4H PRN PRN Reason: Shortness Of Breath/wheezing Amiodarone HCl (Cordarone) 200 mg PO BID [facility] Last Admin: 03/15/19 10:21 Dose: 200 mg Bisacodyl (Dulcolax) 5 mg PO DAILY PRN PRN Reason: Constipation Cefdinir (Omnicef) 300 mg PO BID [facility] Last Admin: 03/15/19 10:20 Dose: 300 mg Docusate Sodium (Colace) 100 mg PO BID PRN PRN Reason: Constipation Last Admin: 03/15/19 07:45 Dose: 100 mg Ondansetron HCl (Zofran Odt) 4 mg PO Q6H PRN PRN Reason: Nausea able to take PO Ondansetron HCl (Zofran) 4 mg IV Q4H PRN PRN Reason: Nausea/Vomiting Pantoprazole Sodium (Protonix) 40 mg PO ACBREAKFAST [facility] Last Admin: 03/15/19 07:45 Dose: 40 mg Discontinued Medications Amiodarone HCl (Cordarone) 200 mg PO DAILY [facility] Last Admin: 03/14/19 08:20 Dose: 200 mg Sodium Chloride (Normal Saline) 1,000 mls @ 500 mls/hr IV ASDIRECTED [facility] Last Admin: 03/11/19 22:28 Dose: 500 mls/hr Sodium Chloride (Normal Saline) 70 mls @ 3 mls/sec IV ASDIRECTED STA Stop: 03/11/19 23:20 Last Admin: 03/11/19 23:37 Dose: 3 mls/sec Ceftriaxone Sodium 1 gm/ (Sodium Chloride) 50 mls @ 100 mls/hr IV Q24H [facility] Last Admin: 03/14/19 02:43 Dose: 100 mls/hr Sodium Chloride (Normal Saline) 1,000 mls @ 100 mls/hr IV ASDIRECTED [facility] Last Admin: 03/12/19 10:20 Dose: 100 mls/hr Amiodarone HCl 450 mg/ (Dextrose/Water) 250 mls @ 33.33 mls/hr IV ASDIRECTED [facility]; Protocol Last Admin: 03/12/19 11:25 Dose: 1 mg/min, 33.33 mls/hr Amiodarone HCl/Dextrose 150 mg (/ Premix) 100 mls @ 400 mls/hr IV ONETIME ONE Stop: 03/12/19 11:14 Last Admin: 03/12/19 11:07 Dose: 400 mls/hr Sodium Chloride (Normal Saline) 1,000 mls @ 25 mls/hr IV ASDIRECTED [facility] Magnesium Sulfate 2 gm/ Premix 50 mls @ 12.5 mls/hr IV ONETIME ONE Stop: 03/12/19 16:59 Last Admin: 03/12/19 12:59 Dose: 12.5 mls/hr Amiodarone HCl/Dextrose 150 mg (/ Premix) 100 mls @ 400 mls/hr IV NOW ONE Stop: 03/14/19 10:29 Last Admin: 03/14/19 10:10 Dose: 400 mls/hr Iopamidol (Isovue-300 (61%)) 100 ml IV . DIRECTED STA Stop: 03/11/19 23:20 Last Admin: 03/11/19 23:37 Dose: 100 ml Metoprolol Tartrate (Lopressor) 25 mg PO ONETIME ONE Stop: 03/12/19 01:41 Last Admin: 03/12/19 02:43 Dose: 25 mg Triamterene/HCTZ (Maxzide 25-37.5 Mg) 0.5 each PO DAILY [facility] Last Admin: 03/12/19 08:49 Dose: 0.5 each
[2019-03-16] MEDS: Cefdinir 300 MG Cap PO SCH (08:21)
[2019-03-16] MEDS: Pantoprazole 40 MG Tab.CR PO SCH (08:21)
[2019-03-16] MEDS: Amiodarone 200 MG Tab PO SCH (08:21)
[2019-03-16 11:16] VITALS: BP 126/63
== END 2019-03-16 13:55 | DRG 690 ==
LOC: JP.ED 21:06 → JP.MS 03-12 01:03 → OBSVTOIN 03-12 10:37 → JP.ICU 03-12 11:04 → JP.MS 03-15 11:12
PROVIDERS: ADMIT Internal Medicine; ATTEND Hospitalist
DX: N30.00 Acute cystitis without hematuria (principal); E86.0 Dehydration; I10 Essential (primary) hypertension; F41.9 Anxiety disorder, unspecified; H54.7 Unspecified visual loss; M19.90 Unspecified osteoarthritis, unspecified site; G89.29 Other chronic pain; I48.0 Paroxysmal atrial fibrillation; R29.810 Facial weakness; R41.0 Disorientation, unspecified; R11.0 Nausea; R10.32 Left lower quadrant pain; R53.81 Other malaise; R50.9 Fever, unspecified; R53.1 Weakness; R21 Rash and other nonspecific skin eruption; Z85.820 Personal history of malignant melanoma of skin; Z90.49 Acquired absence of other specified parts of digestive tract; Z79.899 Other long term (current) drug therapy; Z91.040 Latex allergy status; Z88.8 Allergy status to other drugs, medicaments and biological substances; Z98.891 History of uterine scar from previous surgery; Z66 Do not resuscitate
CPT/HCPCS: 36415 ×2; 74177; 80053; 81001; 83605; 84145; 85025; 87040 ×2; 87086; 96360; 96361; 99285; A9270 ×5; J0696; J7030 ×4; J7050; Q9967; 80048; 83735; 84443; 85027; 93005; 93306; 97110-GP; 97162-GP; 97164-GP; J0282; J3475; J7060